=== PATIENT | male | born 1990 | race African-American/Black ===

== ENCOUNTER 2018-08-19 19:37 | Emergency (ER) | payer SELFPAY ==
[~2018-08-19] VITALS: Ht 180.3 cm; Wt 80.7 kg
[2018-08-19 20:39] LABS: BILIRUBIN,URINE NEGATIVE (NEG); CLARITY,URINE CLEAR; COLOR,URINE YELLOW; NITRITE,URINE NEGATIVE (NEG); PH,URINE 7.5; PROTEIN,URINE NEGATIVE (NEG-TRACE); UROBILINOGEN,URINE 0.2 mg/dL (0.2 mg/dL)
[2018-08-19 20:45] LABS: BARBITURATES NEG (NEG); BENZODIAZEPINES NEG (NEG); CANNABINOIDS NEG (NEG); COCAINE NEG (NEG); METHADONE NEG (NEG); OPIATES NEG (NEG); PHENCYCLIDINE NEG (NEG)
[2018-08-19 20:47] LABS: BACTERIA,URINE 0 /HPF (0-FEW); RBC,URINE 0 /HPF (0-2); WBC,URINE OCC /HPF (0-4)
[2018-08-19 20:48] LABS: AMPHETAMINE/METHAMPHETAMINE NEG (NEG); SQUAMOUS EPITHELIAL CELL,UR OCC /LPF
--- NOTE | 2018-08-19 21:21 | PHYS DOC ---
Past Medical History Past Medical History: No Pertinent History, Asthma Past Surgical History: No Surgical History Alcohol Use: Occasionally Drug Use: Marijuana Adult General Chief Complaint Chief Complaint: ABDOMINAL PAIN HPI HPI Patient is a 27 year old M who presents with 1 week of BULGE TO THE RIGHT GROIN. He states the pain is located in his right MORE THAN left groin area. He states he has had some radiation of the pain towards his back and kidneys. He has had no vomiting, constipation, burning with urination, blood in his stool, upper abdominal pain, or fevers. He does state that he feels a fullness in his groin along with a sensation of pressure. HE ALSO NOTES LESIONS ON HIS PENIS AT THE ONSET OF THE BUMPS. Review of Systems Review of Systems Constitutional: Denies fever or chills [] Eyes: Denies change in visual acuity, redness, or eye pain [] HENT: Denies nasal congestion or sore throat [] Respiratory: Denies cough or shortness of breath [] Cardiovascular: No additional information not addressed in HPI [] GI: Reports abdominal pain, denies nausea, vomiting, bloody stools or diarrhea [] : Denies dysuria or hematuria [] Integument: Denies rash reports a genital skin lesion [] Neurologic: Denies headache, focal weakness or sensory changes [] Endocrine: Denies polyuria or polydipsia [] All other systems were reviewed and found to be within normal limits, except as documented in this note. Current Medications Current Medications Current Medications Medications (Trade) Dose Ordered Sig/Arleen Start Time Stop Time Status Last Admin Dose Admin Azithromycin (Zithromax) 1,000 mg 1X ONCE 08/19/18 21:30 08/19/18 21:31 DC 08/19/18 21:30 1,000 MG Penicillin G Benzathine (Bicillin L-A) 2,400,000 unit 1X ONCE 08/19/18 21:30 08/19/18 21:31 DC 08/19/18 21:30 2,400,000 UNIT Allergies Allergies Allergies Coded Allergies Type Severity Reaction Last Updated Verified No Known Drug Allergies 06/03/15 No Physical Exam Physical Exam Constitutional: Well developed, well nourished, no acute distress, non-toxic appearance. [] HENT: Normocephalic, atraumatic, bilateral external ears normal, oropharynx moist, no oral exudates, nose normal. [] Eyes: PERRLA, EOMI, conjunctiva normal, no discharge. [] Neck: Normal range of motion, no tenderness, supple, no stridor. [] Pulmonary: Normal respiratory effort no increased work of breathing no obvious chest wall trauma Abdomen: Bowel sounds normal, soft, TENDER lymphadenopathy in the right and left groin, no pulsatile masses. [] Skin: Warm, dry, no erythema, no rash, 1cm superficial lesion on the dorsal and ventral aspect of the penis, no vesicles noted. [] Back: No tenderness, no CVA tenderness. Extremities: No tenderness, no cyanosis, no clubbing, ROM intact, no edema. [] Neurologic: Alert and oriented X 3, normal motor function, normal sensory function, no focal deficits noted. [] Psychologic: Affect normal, judgement normal, mood normal. [] Current Patient Data Vital Signs Vital Signs Date Time Temp Pulse Resp B/P (MAP) Pulse Ox O2 Delivery O2 Flow Rate FiO2 08/19/18 21:30 76 14 140/76 (97) 99 Room Air 08/19/18 19:55 98.6 98.6 Lab Values Laboratory Tests Test 08/19/18 20:05 08/19/18 21:25 Urine Collection Type Unknown Urine Color Yellow Urine Clarity Clear Urine pH 7.5 Urine Specific [place] 1.025 Urine Protein Negative mg/dL (NEG-TRACE) Urine Glucose (UA) Negative mg/dL (NEG) Urine Ketones (Stick) Negative mg/dL (NEG) Urine Blood Negative (NEG) Urine Nitrite Negative (NEG) Urine Bilirubin Negative (NEG) Urine Urobilinogen Dipstick 0.2 mg/dL (0.2 mg/dL) Urine Leukocyte Esterase Negative (NEG) Urine RBC 0 /HPF (0-2) Urine WBC Occ /HPF (0-4) Urine Squamous Epithelial Cells Occ /LPF Urine Bacteria 0 /HPF (0-FEW) Urine Mucus Slight /LPF Urine Opiates Screen Neg (NEG) Urine Methadone Screen Neg (NEG) Urine Barbiturates Neg (NEG) Urine Phencyclidine Screen Neg (NEG) Urine Amphetamine/Methamphetamine Neg (NEG) Urine Benzodiazepines Screen Neg (NEG) Urine Cocaine Screen Neg (NEG) Urine Cannabinoids Screen Neg (NEG) Urine Ethyl Alcohol Neg (NEG) Treponema pallidum Antibody Nonreactive (Nonreactive) EKG EKG [] Radiology/Procedures Radiology/Procedures [] Course & Med Decision Making Course & Med Decision Making Pertinent Labs and Imaging studies reviewed. (See chart for details) 27-year-old male presenting with lymphadenopathy as well as lesion to the penis. The screening blood work looked normal however we did give penicillin the emergency room prior to the results of the treponema antibody Also we did give azithromycin for presumed STD-type treatment the lymphadenopathies likely related to the genital lesion which at this point could be primary syphilis although given the negative treponema it is of unclear etiology I did tell him of the importance of follow-up within 1 month should the lymphadenopathy not get better abdomen was benign urinalysis was negative blood pressure was elevated however he was being checked with a normal size cuff on a very muscular forearm he was advised for routine blood pressure follow-up in the next 1-2 months. Dragon Disclaimer Dragon Disclaimer This electronic medical record was generated, in whole or in part, using a voice recognition dictation system. Departure Departure Impression: Primary Impression: Lymphadenopathy Disposition: HOME, SELF-CARE Condition: STABLE Referrals: NO PCP (PCP) Scripts No Active Prescriptions or Reported Meds LINUS COREA MD August 19, 2018 21:21
[2018-08-19 21:30] VITALS: BP 140/76
[2018-08-19] MEDS ORDERED: PENICILLIN G BENZATHINE LA 2,400,000 UNIT/4 ML DISP.SYRIN. IM ONE (21:30)
[2018-08-19] MEDS ORDERED: AZITHROMYCIN 250 MG TABLET. PO ONE (21:30)
== END 2018-08-19 22:25 | disposition home or self-care (01) ==
LOC: ER 19:37
DX: R59.0 Localized enlarged lymph nodes (principal); R10.31 Right lower quadrant pain; R10.32 Left lower quadrant pain; J45.909 Unspecified asthma, uncomplicated
CPT/HCPCS: 36415; 80307; 81001; 86592; 87491; 87591; 96372; 99284; J0561; Q0144

== ENCOUNTER 2018-09-02 10:24 | Emergency (ER) | payer SELFPAY ==
[~2018-09-02] VITALS: Ht 180.3 cm; Wt 80.7 kg
[2018-09-02 10:33] VITALS: BP 125/63
--- NOTE | 2018-09-02 10:47 | PHYS DOC ---
Past Medical History Past Medical History: No Pertinent History, Asthma Past Surgical History: No Surgical History Alcohol Use: Occasionally Drug Use: Marijuana Adult General Chief Complaint Chief Complaint: LOWER EXT PAIN HPI HPI Patient is a 27 year old female with no significant medical history who presents to the ED today complaining of 5 out of 10 right medial and lateral knee pain described as sharp and intermittent that began 2 days ago while playi ng basketball. Patient states the pain is worse on touching or pressing on the medial and lateral aspect of the knee. He states he injured his knee years ago as a child. He states is never followed up with a specialist. Review of Systems Review of Systems Constitutional: Denies fever or chills [] Musculoskeletal: Reports right knee pain Neurologic: Denies headache, focal weakness or sensory changes [] All other systems were reviewed and found to be within normal limits, except as documented in this note. Allergies Allergies Allergies Coded Allergies Type Severity Reaction Last Updated Verified No Known Drug Allergies 06/03/15 No Physical Exam Physical Exam Constitutional: Well developed, well nourished, no acute distress, non-toxic appearance. [] Skin: Warm, dry, no erythema, no rash. [] Back: No tenderness, no CVA tenderness. [] Extremities: Right knee with no obvious deformity. Crepitus noted during physical exam, full range of motion to the right knee, negative Ronak sign and negative Frank's sign negative anterior-posterior drawer sign, no crepitus. +2 right pedal pulses. Neurologic: Alert and oriented X 3, normal motor function, normal sensory function, no focal deficits noted. [] Psychologic: Affect normal, judgement normal, mood normal. [] Current Patient Data Vital Signs Vital Signs Date Time Temp Pulse Resp B/P (MAP) Pulse Ox O2 Delivery O2 Flow Rate FiO2 09/02/18 10:33 98.0 67 16 125/63 (83) 98 Room Air 98.0 EKG EKG [] Radiology/Procedures Radiology/Procedures []PROCEDURE: KNEE RIGHT 4V 3 views right knee dated 09/02/2018. No comparison available. Clinical data indication: Right knee pain. FINDINGS: 3 views of the right knee show normal bony alignment. No displaced fracture. Mild tricompartmental hypertrophic changes with deformity of the lateral tibial plateau and lateral femoral condyle, possibly related to old healed fracture. No joint effusion or loose body. No periostitis or bone destruction. IMPRESSION: 1. No acute radiographic abnormality. 2. Deformity at the lateral compartment could be related to old healed fracture. Electronically signed by: Issa Lima MD (09/02/2018 11:08 AM) [facility] DICTATED and SIGNED BY: ISSA LIMA MD DATE: 09/02/18 1108 Course & Med Decision Making Course & Med Decision Making Pertinent Labs and Imaging studies reviewed. (See chart for details) This is a 27-year-old male patient presented to the ED today with right knee pain, no known injury. The pain began 2 days while playing basketball. He has hi story of previous injury to the right knee. Right knee x-rays interpreted by radiologist are negative for any acute findings. Patient was placed in a knee immobilizer. Instructed to ice and elevate the extremity. Follow-up with orthopedic doctor in 1-2 weeks. Dragon Disclaimer Dragon Disclaimer This electronic medical record was generated, in whole or in part, using a voice recognition dictation system. Departure Departure Impression: Primary Impression: Right knee sprain Disposition: 01 HOME, SELF-CARE Condition: STABLE Referrals: NO PCP (PCP) MIKE DELATORRE MD Follow-up in 1-2 weeks Patient Instructions: Knee Sprain, [id number] Additional Instructions: You were evaluated medicine for right knee pain, your right knee x-rays are negative for any acute findings, we provided you an orthopedic doctor to follow- up as an outpatient. Continue to ice and elevate the extremity. Use the immobilizer provided as tolerated. Take the prescribed medications as needed for pain. Scripts Diclofenac Sodium (DICLOFENAC SODIUM) 50 Mg Tablet.dr 1 TAB PO BID, #60 TAB 1 Refill Prov: SHON WILSON SEBASTIAN 09/02/18 Problem Qualifiers Primary Impression: Right knee sprain Encounter type: initial encounter Involved ligament of knee: unspecified ligament Qualified Codes: S83.91XA - Sprain of unspecified site of right knee, initial encounter JENIFABIANASHON CORTES September 02, 2018 10:47
--- NOTE | 2018-09-02 11:11 | RAD ---
3 views right knee dated 09/02/2018. No comparison available. Clinical data indication: Right knee pain. FINDINGS: 3 views of the right knee show normal bony alignment. No displaced fracture. Mild tricompartmental hypertrophic changes with deformity of the lateral tibial plateau and lateral femoral condyle, possibly related to old healed fracture. No joint effusion or loose body. No periostitis or bone destruction. IMPRESSION: 1. No acute radiographic abnormality. 2. Deformity at the lateral compartment could be related to old healed fracture. Electronically signed by: Issa Lima MD (09/02/2018 11:08 AM) [facility]
[2018-09-02] MEDS ORDERED: DICL50TA4 PO (11:28)
== END 2018-09-02 11:48 | disposition home or self-care (01) ==
LOC: ER 10:24
DX: S83.8X1A Sprain of other specified parts of right knee, initial encounter (principal); J45.909 Unspecified asthma, uncomplicated; X58.XXXA Exposure to other specified factors, initial encounter; Y93.67 Activity, basketball; Y92.89 Other specified places as the place of occurrence of the external cause; Y99.8 Other external cause status
CPT/HCPCS: 29505; 73564; 99284

== ENCOUNTER 2019-04-10 14:49 | Emergency (ER) | payer SELFPAY ==
[~2019-04-10] VITALS: Ht 180.3 cm; Wt 81.6 kg
[~2019-04-10 14:49] MED LIST: DICL50TA4 PO
[2019-04-10 15:13] VITALS: BP 143/84
--- NOTE | 2019-04-10 15:38 | PHYS DOC ---
Past Medical History Past Medical History: No Pertinent History, Asthma Past Surgical History: No Surgical History Alcohol Use: Occasionally Drug Use: Marijuana Adult General Chief Complaint Chief Complaint: GENERALIZED BODY ACHES HPI HPI Patient is a 28 year old male who presents with body aches, feeling hot and cold, sore throat, congestion, runny nose, off has been ongoing for 2 weeks. Patient states he got better then also got worse again. Denies pain at this time. Review of Systems Review of Systems Constitutional: Reports fever or chills [] Eyes: Denies change in visual acuity, redness, or eye pain [] HENT: Reports nasal congestion and sore throat [] Respiratory: Reports cough denies shortness of breath [] Cardiovascular: No additional information not addressed in HPI [] GI: Reports nausea. Denies abdominal pain, vomiting, bloody stools or diarrhea [] : Denies dysuria or hematuria [] Musculoskeletal: Denies back pain or joint pain [] Integument: Denies rash or skin lesions [] Neurologic: Reports headache,denies focal weakness or sensory changes [] Endocrine: Denies polyuria or polydipsia [] Complete systems were reviewed and found to be within normal limits, except as documented in this note. Allergies Allergies Allergies Coded Allergies Type Severity Reaction Last Updated Verified No Known Drug Allergies 06/03/15 No Physical Exam Physical Exam Constitutional: Well developed, well nourished, no acute distress, non-toxic appearance. [] HENT: Normocephalic, atraumatic, bilateral external ears normal, bilateral tympanic membranes are pearly [place], oropharynx moist, no oral exudates, nose turbinates inflamed. Eyes: PERRLA, EOMI, conjunctiva normal, no discharge. [] Neck: Normal range of motion, no tenderness, supple, no stridor. [] Cardiovascular:Heart rate regular rhythm, no murmur [] Lungs & Thorax: Bilateral breath sounds clear to auscultation [] Abdomen: Bowel sounds normal, soft, no tenderness, no masses, no pulsatile masses. [] Skin: Warm, dry, no erythema, no rash. [] Neurologic: Alert and oriented X 3, normal motor function, normal sensory function, no focal deficits noted. [] Psychologic: Affect normal, judgement normal, mood normal. [] EKG EKG [] Radiology/Procedures Radiology/Procedures [] Course & Med Decision Making Course & Med Decision Making Pertinent Labs and Imaging studies reviewed. (See chart for details) The patient appears to have a viral illness. From the patient story it is possible the patient caught a virus improved and then caught a second virus. Discussed with patient the importance of staying hydrated, rest, also discussed symptomatic such as antipyretics and Zyrtec. A medical screening exam was performed on this patient and the patient does not appear to be having a medical emergency. His symptoms are not of sufficient severity and within reasonable medical probability it is unlikely the absence of immediate medical attention would result in placing the health of the individual in serious jeopardy, serious impairment to bodily functions, or serious dysfunction of any bodily organ or part. Dragon Disclaimer Dragon Disclaimer This electronic medical record was generated, in whole or in part, using a voice recognition dictation system. Departure Departure Impression: Primary Impression: Viral syndrome Additional Impression: Encounter for medical screening examination Disposition: HOME, SELF-CARE Condition: STABLE Referrals: NO PCP (PCP) Patient Instructions: Medical Screening Exam, Viral Syndrome Additional Instructions: Thank you for visiting [facility]. We appreciate you trusting us with your care. If any additional problems come up don't hesitate to return to visit us. Please follow up with your primary care provider so they can plan additional care if needed and know about the problem that you had. If symptoms worsen come back to the Emergency Department. Any concerning symptoms that start such as chest pain, shortness of air, weakness or numbness on one side of the body, running high fevers or any other concerning symptoms return to the ER. Problem Qualifiers DENICE RODRIGUEZ APRN Apr 10, 2019 15:38
== END 2019-04-10 16:08 | disposition home or self-care (01) ==
LOC: ER 14:49
DX: B34.9 Viral infection, unspecified (principal); R09.89 Other specified symptoms and signs involving the circulatory and respiratory systems; R09.81 Nasal congestion; R52 Pain, unspecified; J45.909 Unspecified asthma, uncomplicated; F12.90 Cannabis use, unspecified, uncomplicated
CPT/HCPCS: 99281

== ENCOUNTER 2020-08-01 01:08 | Emergency (ER) | payer SELFPAY ==
[~2020-08-01] VITALS: Ht 180.3 cm; Wt 86.4 kg
[2020-08-01 01:39] LABS: BASO # 0.1 x10^3/uL (0.0-0.2); BASO % 1 % (0-3); EOS # 0.1 x10^3/uL (0.0-0.7); EOS % 1 % (0-3); HEMATOCRIT 43.5 % (39.0-53.0); HEMOGLOBIN 14.8 g/dL (13.0-17.5); LYMPH % 43 % (24-48); MEAN CORPUSCULAR HEMOGLOBIN 31 pg (25-35); MEAN CORPUSCULAR HGB CONC 34 g/dL (31-37); MEAN CORPUSCULAR VOLUME 90 fL (79-100); MONO # 0.9 x10^3/uL (0.0-1.1); MONO % 10 % (0-9); NEUT # 4.1 x10^3/uL (1.8-7.7); NEUT % 44 % (31-73); PLATELET COUNT 294 x10^3/uL (140-400); RED BLOOD COUNT 4.84 x10^6/uL (4.30-5.70); RED CELL DISTRIBUTION WIDTH 12.9 % (11.5-14.5); WHITE BLOOD COUNT 9.2 x10^3/uL (4.0-11.0)
[2020-08-01] MEDS: IV NORMAL SALINE 1000ML BAG 1,000 ML IV SCH (01:39)
[2020-08-01 01:52] LABS: CREATININE 1.3 mg/dL (0.7-1.3); GFR 79.5; POTASSIUM 3.4 mmol/L (3.5-5.1)
--- NOTE | 2020-08-01 01:55 | EKG ---
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
[2020-08-01 01:57] LABS: ALBUMIN 4.5 g/dL (3.4-5.0); ALBUMIN/GLOBULIN RATIO 1.2 (1.0-1.7); MAGNESIUM 2.2 mg/dL (1.8-2.4); TOTAL BILIRUBIN 0.6 mg/dL (0.2-1.0); TOTAL PROTEIN 8.4 g/dL (6.4-8.2)
[2020-08-01] MEDS: HALOPERIDOL LACTATE 5 MG/ML VIAL. IVP ONE (02:00)
[2020-08-01 02:25] LABS: BILIRUBIN,URINE NEGATIVE (NEG); CLARITY,URINE CLEAR; COLOR,URINE YELLOW; NITRITE,URINE NEGATIVE (NEG); PH,URINE 6.5 (<5.0-8.0); PROTEIN,URINE NEGATIVE (NEG-TRACE); UROBILINOGEN,URINE 0.2 mg/dL (0.2 mg/dL)
--- NOTE | 2020-08-01 02:39 | RAD ---
CT Head W/O Contrast: History: Reason: head injury / Spl. Instructions: / History: Comparison: none Axial images were obtained without contrast. The lebron and white matter appears normal and symmetrical for the patients age. There is no mass effe ct, extraaxial fluid collections or hydrocephalus. There is no gross bleed. There is no focal loss of lebron-white matter distinction to suggest acute ischemia, i.e. stroke. Impression: No acute findings. RS Compliance Statement: One or more of the following individualized dose reduction techniques were utilized for this examinat ion: 1. Automated exposure control 2. Adjustment of the mA and/or kV according to patient size 3. Use of iterative reconstruction technique Electronically signed by: Horacio Bowles III, MD (08/01/2020 2:37 AM) [facility]
[2020-08-01 02:41] LABS: BACTERIA,URINE 0 /HPF (0-FEW); RBC,URINE OCC /HPF (0-2)
[2020-08-01 04:16] VITALS: BP 129/76
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
== END 2020-08-01 04:33 | disposition home or self-care (01) ==
LOC: ER 01:08
DX: S06.891A Other specified intracranial injury with loss of consciousness of 30 minutes or less, initial encounter (principal); R42 Dizziness and giddiness; R20.8 Other disturbances of skin sensation; R55 Syncope and collapse; J45.909 Unspecified asthma, uncomplicated; F12.90 Cannabis use, unspecified, uncomplicated; Z87.891 Personal history of nicotine dependence; Y08.89XA Assault by other specified means, initial encounter; Y93.89 Activity, other specified; Y92.89 Other specified places as the place of occurrence of the external cause; Y99.8 Other external cause status
CPT/HCPCS: 36415; 70450; 80053; 81001; 83690; 83735; 85025; 93005; 96360; 99285; J7030

== ENCOUNTER 2020-09-27 13:26 | Inpatient (IN) | payer SELFPAY ==
[~2020-09-27] VITALS: Ht 180.3 cm; Wt 95.3 kg
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
[2020-09-27 14:41] LABS: BASO % 0 % (0-3); EOS % 0 % (0-3); HEMATOCRIT 43.7 % (39.0-53.0); HEMOGLOBIN 15.5 g/dL (13.0-17.5); LYMPH # 1.8 x10^3/uL (1.0-4.8); LYMPH % 25 % (24-48); MEAN CORPUSCULAR HEMOGLOBIN 31 pg (25-35); MEAN CORPUSCULAR HGB CONC 36 g/dL (31-37); MEAN CORPUSCULAR VOLUME 88 fL (79-100); MONO # 0.6 x10^3/uL (0.0-1.1); MONO % 8 % (0-9); NEUT # 4.7 x10^3/uL (1.8-7.7); NEUT % 66 % (31-73); PLATELET COUNT 270 x10^3/uL (140-400); RED CELL DISTRIBUTION WIDTH 12.7 % (11.5-14.5); WHITE BLOOD COUNT 7.1 x10^3/uL (4.0-11.0)
[2020-09-27 14:43] LABS: BILIRUBIN,URINE NEGATIVE (NEG); CLARITY,URINE CLOUDY; COLOR,URINE AMBER; NITRITE,URINE NEGATIVE (NEG); PROTEIN,URINE 30 mg/dL (NEG-TRACE)
[2020-09-27 14:49] LABS: CALCIUM 9.7 mg/dL (8.5-10.1); CREATININE 1.4 mg/dL (0.7-1.3); POTASSIUM 3.8 mmol/L (3.5-5.1)
[2020-09-27 14:49] LABS: BARBITURATES NEG (NEG); BENZODIAZEPINES NEG (NEG); CANNABINOIDS POS (NEG); COCAINE NEG (NEG); METHADONE NEG (NEG); OPIATES NEG (NEG); PHENCYCLIDINE NEG (NEG)
[2020-09-27 14:50] LABS: AMPHETAMINE/METHAMPHETAMINE NEG (NEG)
[2020-09-27 14:55] LABS: ALBUMIN 4.7 g/dL (3.4-5.0); ALBUMIN/GLOBULIN RATIO 1.3 (1.0-1.7); TOTAL BILIRUBIN 1.9 mg/dL (0.2-1.0); TOTAL PROTEIN 8.4 g/dL (6.4-8.2)
[2020-09-27 14:57] LABS: BACTERIA,URINE FEW /HPF (0-FEW); RBC,URINE 0 /HPF (0-2); WBC,URINE OCC /HPF (0-4)
[2020-09-27] MEDS ORDERED: IV NORMAL SALINE 1000ML BAG 1,000 ML IV ONE ×2 (15:00→16:30)
[2020-09-27] MEDS ORDERED: fentaNYL PF VIAL 100 MCG/2 ML VIAL IVP ONE (15:00)
[2020-09-27] MEDS ORDERED: ONDANSETRON PF 4 MG/2 ML VIAL. IVP ONE ×2 (15:00→18:15)
[2020-09-27] MEDS ORDERED: ONDA4TAB12 PO (16:58)
[2020-09-27] MEDS ORDERED: HALOPERIDOL LACTATE 5 MG/ML VIAL. ONE (18:13)
[2020-09-27] MEDS ORDERED: HALOPERIDOL LACTATE 5 MG/ML VIAL. IVP ONE (18:15)
[2020-09-27] MEDS ORDERED: ONDANSETRON PF 4 MG/2 ML VIAL. IV PRN (18:30)
[2020-09-27] MEDS ORDERED: ACETAMINOPHEN 325 MG TABLET. PO PRN (18:30)
[2020-09-27] MEDS ORDERED: IV NORMAL SALINE 1000ML BAG 1,000 ML IV SCH (18:30)
[2020-09-27] MEDS ORDERED: fentaNYL PF VIAL 100 MCG/2 ML VIAL IV PRN (18:30)
[2020-09-27 19:48] VITALS: BP 115/50
--- NOTE | 2020-09-27 20:00 | NUR ---
Patient, Mando Fonseca, 29 y/o male, found in room, in bed, was not informed that the patient was on the unit. The patient is informed of plan of care, belongings documented, hx and assessment completed. He denies pain, he does want some soda and jello at this time. Patient information handbook given, denies any further questions. monitoring.
[2020-09-27] MEDS ORDERED: ZOLPIDEM 5 MG TABLET. PO PRN (22:45)
[2020-09-27 23:00] VITALS: BP 92/53
[2020-09-27] MEDS ORDERED: PROCHLORPERAZINE 10 MG/2 ML VIAL. IVP PRN (23:15)
[2020-09-27] MEDS ORDERED: MAG HYDROX/ALUMINUM HYD/SIMETH 30 ML ORAL.SUSP PO PRN (23:15)
[2020-09-27] MEDS ORDERED: BISACODYL 10 MG SUPP.RECT. PR PRN (23:15)
[2020-09-27] MEDS ORDERED: CALCIUM CARBONATE 500 MG TAB.CHEW PO PRN (23:15)
[2020-09-27] MEDS ORDERED: ONDANSETRON PF 4 MG/2 ML VIAL. IVP PRN (23:15)
[2020-09-28 04:50] VITALS: BP 114/61
--- NOTE | 2020-09-28 05:05 | NUR ---
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
[2020-09-28 07:00] VITALS: BP 138/72
[2020-09-28] MEDS ORDERED: PANTOPRAZOLE IV PUSH 40 MG VIAL. IVP SCH (07:30)
--- NOTE | 2020-09-28 07:40 | NUR ---
The patient is, again, informed of needing to obtain the covid, and flu swab, he asked if he could refuse it, "I don't feel like I have any infection or anything like that.." he was asked if he has been around anyone that is known to have the flu or Covid, patient denies, and again states he doesn't want to be swabbed, asks for lemon [place] drink
--- NOTE | 2020-09-28 08:51 | PDOC1 ---
History and Physical Date of Admission Date of Admission DATE: 09/28/20 TIME: 08:50 History of Present Illness History of Present Illness Mr. Rex Fonseca is a 29 year old male presenting with nausea, vomiting, diarrhea, and epigastric pain x4 days. Denies any fevers or cough. Patient states he had similar episodes in the past and had to be admitted for kidney injury. No sick contacts. P he was given IV fluid and supportive care and felt much better in the AM and wanted to DC home Past Medical History Cardiovascular: No pertinent hx Pulmonary: No pertinent hx GI: No pertinent hx Heme/Onc: No pertinent hx Hepatobiliary: No pertinent hx Psych: No pertinent hx Rheumatologic: No pertinent hx Infectious disease: No pertinent hx Renal/: No pertinent hx Endocrine: No pertinent hx Social History ALCOHOL: occassional Drugs: Marijuana Current Problem List Problem List Problems Medical Problems: (1) Nausea, vomiting, and diarrhea Status: Acute Current Medications Current Medications Current Medications Sodium Chloride 1,000 ml @ 1,000 mls/hr 1X ONCE IV Last administered on 09/27/20at 15:18; Start 09/27/20 at 15:00; Stop 09/27/20 at 15:59; Status DC Ondansetron HCl (Zofran) 4 mg 1X ONCE IVP Last administered on 09/27/20at 15:18; Start 09/27/20 at 15:00; Stop 09/27/20 at 15:01; Status DC Fentanyl Citrate (Fentanyl 2ml Vial) 75 mcg 1X ONCE IVP Last administered on 09/27/20at 15:19; Start 09/27/20 at 15:00; Stop 09/27/20 at 15:01; Status DC Sodium Chloride 1,000 ml @ 1,000 mls/hr 1X ONCE IV Last administered on 09/27/20at 16:30; Start 09/27/20 at 16:30; Stop 09/27/20 at 17:29; Status DC Ondansetron HCl (Zofran) 4 mg 1X ONCE IVP Last administered on 09/27/20at 18:17; Start 09/27/20 at 18:15; Stop 09/27/20 at 18:16; Status DC Haloperidol Lactate (Haldol Inj) 5 mg STK-MED ONCE .ROUTE ; Start 09/27/20 at 18:13; Stop 09/27/20 at 18:13; Status DC Haloperidol Lactate (Haldol Inj) 5 mg 1X ONCE IVP Last administered on 09/27/20at 18:20; Start 09/27/20 at 18:15; Stop 09/27/20 at 18:17; Status DC Ondansetron HCl (Zofran) 4 mg PRN Q8HRS PRN IV NAUSEA/VOMITING; Start 09/27/20 at 18:30; Stop 09/28/20 at 18:29 Fentanyl Citrate (Fentanyl 2ml Vial) 50 mcg PRN Q1HR PRN IV PAIN; Start 09/27/20 at 18:30; Stop 09/28/20 at 18:29 Sodium Chloride 1,000 ml @ 100 mls/hr Q10H IV ; Start 09/27/20 at 18:30; Stop 09/28/20 at 18:29 Acetaminophen (Tylenol) 650 mg PRN Q4HRS PRN PO FEVER > 100.3'F; Start 09/27/20 at 18:30; Stop 09/28/20 at 18:29 Zolpidem Tartrate (Ambien) 5 mg PRN QHS PRN PO INSOMNIA Last administered on 09/27/20at 22:43; Start 09/27/20 at 22:45 Ondansetron HCl (Zofran) 4 mg PRN Q6HRS PRN IVP NAUSEA/VOMITING; Start 09/27/20 at 23:15 Prochlorperazine Edisylate (Compazine) 10 mg PRN Q6HRS PRN IVP NAUSEA/VOMITING; Start 09/27/20 at 23:15 Al Hydroxide/Mg Hydroxide (Mylanta Plus Xs) 30 ml PRN Q3HRS PRN PO HEARTBURN / GAS; Start 09/27/20 at 23:15 Calcium Carbonate/ Glycine (Tums) 500 mg PRN Q3HRS PRN PO UPSET STOMACH; Start 09/27/20 at 23:15 Bisacodyl (Dulcolax Supp) 10 mg PRN DAILY PRN MO CONSTIPATION; Start 09/27/20 at 23:15 Pantoprazole Sodium (PROTONIX VIAL for IV PUSH) 40 mg DAILYAC IVP ; Start 09/28/20 at 07:30 Active Scripts Active Ondansetron Odt (Ondansetron) 4 Mg Tab.rapdis 1 Tab PO PRN Q6-8HRS PRN Diclofenac Sodium 50 Mg Tablet. 1 Tab PO BID Allergies Allergies: Coded Allergies: No Known Drug Allergies (Unverified , 06/03/15) Vitals Vitals Vital Signs Date Time Temp Pulse Resp B/P (MAP) Pulse Ox O2 Delivery O2 Flow Rate FiO2 09/28/20 07:00 98.0 63 20 138/72 (94) 95 Room Air 98.0 Labs Labs Laboratory Tests Test 09/27/20 13:52 09/27/20 14:10 09/27/20 15:31 09/28/20 02:00 Urine Collection Type Unknown Urine Color Sandra Urine Clarity Cloudy Urine pH 8.0 (<5.0-8.0) Urine Specific [place] >=1.030 (1.000-1.030) Urine Protein 30 mg/dL (NEG-TRACE) Urine Glucose (UA) Negative mg/dL (NEG) Urine Ketones (Stick) Trace mg/dL (NEG) Urine Blood Negative (NEG) Urine Nitrite Negative (NEG) Urine Bilirubin Negative (NEG) Urine Urobilinogen Dipstick 1.0 mg/dL (0.2 mg/dL) Urine Leukocyte Esterase Negative (NEG) Urine RBC 0 /HPF (0-2) Urine WBC Occ /HPF (0-4) Urine Squamous Epithelial Cells Mod /LPF Urine Bacteria Few /HPF (0-FEW) Urine Mucus Mod /LPF Urine Opiates Screen Neg (NEG) Urine Methadone Screen Neg (NEG) Urine Barbiturates Neg (NEG) Urine Phencyclidine Screen Neg (NEG) Urine Amphetamine/Methamphetamine Neg (NEG) Urine Benzodiazepines Screen Neg (NEG) Urine Cocaine Screen Neg (NEG) Urine Cannabinoids Screen Pos (NEG) Urine Ethyl Alcohol Neg (NEG) White Blood Count 7.1 x10^3/uL (4.0-11.0) Red Blood Count 5.00 x10^6/uL (4.30-5.70) Hemoglobin 15.5 g/dL (13.0-17.5) Hematocrit 43.7 % (39.0-53.0) Mean Corpuscular Volume 88 fL (79-100) Mean Corpuscular Hemoglobin 31 pg (25-35) Mean Corpuscular Hemoglobin Concent 36 g/dL (31-37) Red Cell Distribution Width 12.7 % (11.5-14.5) Platelet Count 270 x10^3/uL (140-400) Neutrophils (%) (Auto) 66 % (31-73) Lymphocytes (%) (Auto) 25 % (24-48) Monocytes (%) (Auto) 8 % (0-9) Eosinophils (%) (Auto) 0 % (0-3) Basophils (%) (Auto) 0 % (0-3) Neutrophils # (Auto) 4.7 x10^3/uL (1.8-7.7) Lymphocytes # (Auto) 1.8 x10^3/uL (1.0-4.8) Monocytes # (Auto) 0.6 x10^3/uL (0.0-1.1) Eosinophils # (Auto) 0.0 x10^3/uL (0.0-0.7) Basophils # (Auto) 0.0 x10^3/uL (0.0-0.2) Sodium Level 138 mmol/L (136-145) Potassium Level 3.8 mmol/L (3.5-5.1) Chloride Level 102 mmol/L (98-107) Carbon Dioxide Level 26 mmol/L (21-32) Anion Gap 10 (6-14) Blood Urea Nitrogen 11 mg/dL (8-26) Creatinine 1.4 mg/dL (0.7-1.3) Estimated GFR (Cockcroft-Gault) 73.0 BUN/Creatinine Ratio 8 (6-20) Glucose Level 107 mg/dL (70-99) Calcium Level 9.7 mg/dL (8.5-10.1) Total Bilirubin 1.9 mg/dL (0.2-1.0) Aspartate Amino Transf (AST/SGOT) 59 U/L (15-37) Alanine Aminotransferase (ALT/SGPT) 136 U/L (16-63) Alkaline Phosphatase 90 U/L (46-116) Total Protein 8.4 g/dL (6.4-8.2) Albumin 4.7 g/dL (3.4-5.0) Albumin/Globulin Ratio 1.3 (1.0-1.7) Lipase 25 U/L (73-393) Lactic Acid Level 2.2 mmol/L (0.4-2.0) 1.0 mmol/L (0.4-2.0) Laboratory Tests Test 09/27/20 13:52 09/27/20 14:10 09/27/20 15:31 09/28/20 02:00 Urine Collection Type Unknown Urine Color Sandra Urine Clarity Cloudy Urine pH 8.0 (<5.0-8.0) Urine Specific [place] >=1.030 (1.000-1.030) Urine Protein 30 mg/dL (NEG-TRACE) Urine Glucose (UA) Negative mg/dL (NEG) Urine Ketones (Stick) Trace mg/dL (NEG) Urine Blood Negative (NEG) Urine Nitrite Negative (NEG) Urine Bilirubin Negative (NEG) Urine Urobilinogen Dipstick 1.0 mg/dL (0.2 mg/dL) Urine Leukocyte Esterase Negative (NEG) Urine RBC 0 /HPF (0-2) Urine WBC Occ /HPF (0-4) Urine Squamous Epithelial Cells Mod /LPF Urine Bacteria Few /HPF (0-FEW) Urine Mucus Mod /LPF Urine Opiates Screen Neg (NEG) Urine Methadone Screen Neg (NEG) Urine Barbiturates Neg (NEG) Urine Phencyclidine Screen Neg (NEG) Urine Amphetamine/Methamphetamine Neg (NEG) Urine Benzodiazepines Screen Neg (NEG) Urine Cocaine Screen Neg (NEG) Urine Cannabinoids Screen Pos (NEG) Urine Ethyl Alcohol Neg (NEG) White Blood Count 7.1 x10^3/uL (4.0-11.0) Red Blood Count 5.00 x10^6/uL (4.30-5.70) Hemoglobin 15.5 g/dL (13.0-17.5) Hematocrit 43.7 % (39.0-53.0) Mean Corpuscular Volume 88 fL (79-100) Mean Corpuscular Hemoglobin 31 pg (25-35) Mean Corpuscular Hemoglobin Concent 36 g/dL (31-37) Red Cell Distribution Width 12.7 % (11.5-14.5) Platelet Count 270 x10^3/uL (140-400) Neutrophils (%) (Auto) 66 % (31-73) Lymphocytes (%) (Auto) 25 % (24-48) Monocytes (%) (Auto) 8 % (0-9) Eosinophils (%) (Auto) 0 % (0-3) Basophils (%) (Auto) 0 % (0-3) Neutrophils # (Auto) 4.7 x10^3/uL (1.8-7.7) Lymphocytes # (Auto) 1.8 x10^3/uL (1.0-4.8) Monocytes # (Auto) 0.6 x10^3/uL (0.0-1.1) Eosinophils # (Auto) 0.0 x10^3/uL (0.0-0.7) Basophils # (Auto) 0.0 x10^3/uL (0.0-0.2) Sodium Level 138 mmol/L (136-145) Potassium Level 3.8 mmol/L (3.5-5.1) Chloride Level 102 mmol/L (98-107) Carbon Dioxide Level 26 mmol/L (21-32) Anion Gap 10 (6-14) Blood Urea Nitrogen 11 mg/dL (8-26) Creatinine 1.4 mg/dL (0.7-1.3) Estimated GFR (Cockcroft-Gault) 73.0 BUN/Creatinine Ratio 8 (6-20) Glucose Level 107 mg/dL (70-99) Calcium Level 9.7 mg/dL (8.5-10.1) Total Bilirubin 1.9 mg/dL (0.2-1.0) Aspartate Amino Transf (AST/SGOT) 59 U/L (15-37) Alanine Aminotransferase (ALT/SGPT) 136 U/L (16-63) Alkaline Phosphatase 90 U/L (46-116) Total Protein 8.4 g/dL (6.4-8.2) Albumin 4.7 g/dL (3.4-5.0) Albumin/Globulin Ratio 1.3 (1.0-1.7) Lipase 25 U/L (73-393) Lactic Acid Level 2.2 mmol/L (0.4-2.0) 1.0 mmol/L (0.4-2.0) VTE Prophylaxis Ordered VTE Prophylaxis Devices: No VTE Pharmacological Prophylaxi: Yes KOLBY YATES MD Sep 28, 2020 08:51
--- NOTE | 2020-09-28 10:02 | NUR ---
Discharge Note: STEVE GARBRE JOHANNE Discharge instructions and discharge home medications reviewed with Patient and a copy given. All questions have been answered and understanding verbalized. The following instructions and handouts were given: follow up instructions, medication education Discontinued lines and drains: 20 guage left AC, tip intact. patinet tolerated well. Patient discharged to home with self care via significant other.
--- NOTE | 2020-10-01 13:19 | PDOC3 ---
Discharge Summary Visit Information Date of Admission: Sep 27, 2020 Date of Discharge: Sep 28, 2020 Final Diagnosis nausea and vomiting acute viral enteritis THC use, not likely hyperemesis, first occurence, but discussed withpatient CKD 2 mild transaminitis Problems Medical Problems: (1) Nausea, vomiting, and diarrhea Status: Acute Brief Hospital Course Allergies Allergies Coded Allergies Type Severity Reaction Last Updated Verified No Known Drug Allergies 06/03/15 No Brief Hospital Course Mr. Mando Fonseca is a 29 year old male presenting with nausea, vomiting, diarrhea, and epigastric pain x4 days. Denies any fevers or cough. Patient states he had similar episodes in the past and had to be admitted for kidney injury. No sick contacts. P he was given IV fluid and supportive care and felt much better in the AM and wanted to DC home Discharge Information Condition at Discharge: Improved Follow Up: Weeks Disposition/Orders: D/C to Home Scheduled Diclofenac Sodium (Diclofenac Sodium) 50 Mg Tablet.dr, 1 TAB PO BID, #60 Ref 1 Prescribed by: Renae Ruffin APRN on 09/02/18 1128 Scheduled PRN Ondansetron (Ondansetron Odt) 4 Mg Tab.rapdis, 1 TAB PO PRN Q6-8HRS PRN for NAUSEA, #15 Prescribed by: VALENTINA OSULLIVAN MD on 09/27/201657 Last Action: New Order on 09/27/201657 by VALENTINA OSULLIVAN MD Patient Instructions Patient Instructions pt seen and DC same day, he felt improved to baseline Justicifation of Admission Dx: Justifications for Admission: Justification of Admission Dx: No (obs) KOLBY YATES MD Oct 01, 2020 13:19
== END 2020-09-28 10:02 | disposition home or self-care (01) | DRG 392 ==
LOC: ER 13:26 → 6 SOUTH 18:19
PROVIDERS: ADMIT Family Medicine; ATTEND Family Medicine
DX: A08.4 Viral intestinal infection, unspecified (principal); J45.909 Unspecified asthma, uncomplicated; Z87.891 Personal history of nicotine dependence; F12.90 Cannabis use, unspecified, uncomplicated; N18.2 Chronic kidney disease, stage 2 (mild); R74.01 Elevation of levels of liver transaminase levels
CPT/HCPCS: 36415; 80053; 80307; 81001; 83605; 83690; 85025; 96361; 96374; 96375; 96376; J1630; J2405; J3010; J7030; 99285-25; G0378

== ENCOUNTER 2020-10-31 09:56 | Emergency (ER) | payer SELFPAY ==
[~2020-10-31] VITALS: Ht 177.8 cm; Wt 84.0 kg
[~2020-10-31 09:56] MED LIST changes: +ONDA4TAB12 PO
[2020-10-31] MEDS ORDERED: IV NORMAL SALINE 1000ML BAG 1,000 ML IV ONE (10:45)
[2020-10-31] MEDS ORDERED: ONDANSETRON PF 4 MG/2 ML VIAL. IVP ONE (10:45)
[2020-10-31] MEDS ORDERED: HALOPERIDOL LACTATE 5 MG/ML VIAL. IVP ONE (10:45)
--- NOTE | 2020-10-31 10:48 | PHYS DOC ---
Past Medical History Past Medical History: Asthma, Cyclic Vomiting Additional Past Medical Histor: CHRONIC N/V/D,STEPHANIE,ACUTE RENAL FAILURE,RHABDOMYLOSIS Past Surgical History: No Surgical History Smoking Status: Never Smoker Alcohol Use: None Drug Use: Marijuana General Adult EDM: Chief Complaint: NAUSEA/VOMITING/DIARRHEA HPI: HPI: Patient is a 30 year old male with history of asthma, marijuana use with chronic nausea and vomiting who presents to the ED today complaining of chronic nausea and vomiting. Patient states symptoms have been going on for months. Patient states he used marijuana a couple days ago. Patient denies any fever, hematemesis or melena. States he has generalized abdominal pain. Patient is also complaining of loss of taste, and a cough for 1 week. Denies any chest pa in or shortness of breath. He also states he has history of acute kidney injury from dehydration after episodes of vomiting Review of Systems: Review of Systems: Constitutional: Denies fever or chills. [] Eyes: Denies change in visual acuity. [] HENT: Denies nasal congestion or sore throat. [] Respiratory: Reports cough and muscle test, denies shortness of breath. [] Cardiovascular: Denies chest pain or edema. [] GI: Reports chronic abdominal pain, nausea and vomiting, denies bloody stools or diarrhea. [] : Denies dysuria. [] Musculoskeletal: Denies back pain or joint pain. [] Integument: Denies rash. [] Neurologic: Denies headache, focal weakness or sensory changes. [] Psychiatric: Denies depression or anxiety. [] Heart Score: C/O Chest Pain: N/A Risk Factors: Risk Factors: DM, Current or recent (<one month) smoker, HTN, HLP, family history of CAD, obesity. Risk Scores: Score 0 - 3: 2.5% MACE over next 6 weeks - Discharge Home Score 4 - 6: 20.3% MACE over next 6 weeks - Admit for Clinical Observation Score 7 - 10: 72.7% MACE over next 6 weeks - Early Invasive Strategies Allergies: Allergies: Allergies Coded Allergies Type Severity Reaction Last Updated Verified No Known Drug Allergies 06/03/15 No Physical Exam: PE: Constitutional: Well developed, well nourished, no acute distress, non-toxic appearance. [] HENT: Normocephalic, atraumatic, bilateral external ears normal, oropharynx mois t, no oral exudates, nose normal. [] Eyes: PERRLA, EOMI, conjunctiva normal, no discharge. [] Neck: Normal range of motion, no tenderness, supple, no stridor. [] Cardiovascular:Heart rate regular rhythm, no murmur [] Lungs & Thorax: Bilateral breath sounds clear to auscultation [] Abdomen: Bowel sounds normal, soft, no tenderness, no masses, no pulsatile masses. [] Skin: Warm, dry, no erythema, no rash. [] Back: No tenderness, no CVA tenderness. [] Extremities: No tenderness, no cyanosis, no clubbing, ROM intact, no edema. [] Neurologic: Alert and oriented X 3, normal motor function, normal sensory function, no focal deficits noted. [] Psychologic: Affect normal, judgement normal, mood normal. [] Current Patient Data: Vital Signs: Vital Signs Date Time Temp Pulse Resp B/P (MAP) Pulse Ox O2 Delivery O2 Flow Rate FiO2 10/31/20 10:06 98.0 60 20 177/105 (94) 100 Room Air 98.0 EKG: EKG: [] Radiology/Procedures: Radiology/Procedures: []PROCEDURE: CHEST AP ONLY Exam Date: 10/31/2020 10:50 AM XR CHEST 1V Indication: Reason: cough / Spl. Instructions: / History: . Comparison: October 26, 2017 FINDINGS/ IMPRESSION: The cardiac silhouette and pulmonary vasculature are within normal limits. There is no focal consolidation, pleural effusion or pneumothorax. The visualized osseous structures are intact. Electronically signed by: Francisco Javier Moore MD (10/31/2020 11:00 AM) [id number] DICTATED and SIGNED BY: FRANCISCO JAVIER MOORE MD DATE: 10/31/20 [id number] 0 Course & Med Decision Making: Course & Med Decision Making Pertinent Labs and Imaging studies reviewed. (See chart for details) This is a 30-year-old male patient with a history of marijuana use with chronic nausea and vomiting presenting to the ED today complaining of chronic nausea, vomiting, and generalized abdominal pain. Patient is also complaining of loss of taste and a cough for 1 week. Patient used marijuana a couple days ago. He states he has been told this could be the source of his chronic nausea and vomiting. Chest x-ray with no acute findings, Pending Covid results CMP with no acute findings Given a liter of fluids Zofran and Haldol, feeling better. Discharge to home. Provided GI for follow-up. Discussed the effect of marijuana use and cyclic vomiting. Your evaluated in the emergency room for nausea and vomiting. Take the prescribed medications as needed. Please follow-up with the provided data examination clerk in 1 to 2 weeks. Dragon Disclaimer: Dragon Disclaimer: This electronic medical record was generated, in whole or in part, using a voice recognition dictation system. Departure Departure Impression: Primary Impression: Cyclical vomiting Additional Impression: Person under investigation for COVID-19 Disposition: HOME / SELF CARE / HOMELESS Condition: STABLE Referrals: NO PCP (PCP) LEON ALMEIDA MD follow up in one week Patient Instructions: Cyclic Vomiting Syndrome Additional Instructions: Your kidney function is normal today. We encourage you to push fluids. Follow- up with the provided data examination clerk in 1 to 2 weeks. You were tested for COVID-19, quarantine yourself until results are back. Scripts Promethazine Hcl (PROMETHAZINE HCL) 12.5 Mg Tablet 1 TAB PO Q6HRS for motion sickness, #30 TAB 0 Refills Prov: SHON WILSON APRN 10/31/20 SHON WILSON APRN Oct 31, 2020 10:47
[2020-10-31 11:02] LABS: ANION GAP 12 (6-14); BLOOD UREA NITROGEN 5 mg/dL (8-26); BUN/CREATININE RATIO 5 (6-20); CALCIUM 9.4 mg/dL (8.5-10.1); CARBON DIOXIDE 25 mmol/L (21-32); CHLORIDE 104 mmol/L (98-107); CREATININE 1.1 mg/dL (0.7-1.3); GFR 95.8; GLUCOSE 104 mg/dL (70-99); POTASSIUM 3.7 mmol/L (3.5-5.1); SODIUM 141 mmol/L (136-145)
--- NOTE | 2020-10-31 11:03 | RAD ---
Exam Date: 10/31/2020 10:50 AM XR CHEST 1V Indication: Reason: cough / Spl. Instructions: / History: . Comparison: October 26, 2017 FINDINGS/ IMPRESSION: The cardiac silhouette and pulmonary vasculature are within normal limits. There is no focal consolidation, pleural effusion or pneumothorax. The visualized osseous structures are intact. Electronically signed by: Ruperto Moore MD (10/31/2020 11:00 AM) [id number]
[2020-10-31 11:07] LABS: ALBUMIN 3.9 g/dL (3.4-5.0); ALBUMIN/GLOBULIN RATIO 1.1 (1.0-1.7); ALK PHOS 77 U/L (46-116); ALT (SGPT) 34 U/L (16-63); AST (SGOT) 25 U/L (15-37); LIPASE 40 U/L (73-393); TOTAL BILIRUBIN 0.9 mg/dL (0.2-1.0); TOTAL PROTEIN 7.4 g/dL (6.4-8.2)
[2020-10-31 11:20] LABS: C-REACTIVE PROTEIN < 0.5 mg/L (0-3.3)
[2020-10-31 12:41] VITALS: BP 124/58
[2020-10-31] MEDS ORDERED: PROM12.58 PO (13:23)
[2020-10-31 13:36] LABS: BASO % 1 % (0-3); EOS % 1 % (0-3); HEMATOCRIT 39.3 % (39.0-53.0); HEMOGLOBIN 13.5 g/dL (13.0-17.5); LYMPH # 1.6 x10^3/uL (1.0-4.8); LYMPH % 28 % (24-48); MEAN CORPUSCULAR HEMOGLOBIN 31 pg (25-35); MEAN CORPUSCULAR HGB CONC 34 g/dL (31-37); MEAN CORPUSCULAR VOLUME 90 fL (79-100); MONO # 0.5 x10^3/uL (0.0-1.1); MONO % 9 % (0-9); NEUT # 3.5 x10^3/uL (1.8-7.7); NEUT % 62 % (31-73); PLATELET COUNT 226 x10^3/uL (140-400); RED BLOOD COUNT 4.38 x10^6/uL (4.30-5.70); RED CELL DISTRIBUTION WIDTH 12.8 % (11.5-14.5); WHITE BLOOD COUNT 5.6 x10^3/uL (4.0-11.0)
[2020-10-31 13:57] LABS: BILIRUBIN,URINE NEGATIVE (NEG); CLARITY,URINE CLEAR; COLOR,URINE YELLOW; NITRITE,URINE NEGATIVE (NEG); PROTEIN,URINE NEGATIVE (NEG-TRACE); UROBILINOGEN,URINE 0.2 mg/dL (0.2 mg/dL)
[2020-10-31 14:04] LABS: BARBITURATES NEG (NEG); BENZODIAZEPINES NEG (NEG); CANNABINOIDS POS (NEG); COCAINE NEG (NEG); METHADONE NEG (NEG); OPIATES NEG (NEG); PHENCYCLIDINE NEG (NEG)
[2020-10-31 14:05] LABS: AMPHETAMINE/METHAMPHETAMINE NEG (NEG)
[2020-10-31 14:07] LABS: BACTERIA,URINE FEW /HPF (0-FEW); RBC,URINE 0 /HPF (0-2); WBC,URINE OCC /HPF (0-4)
== END 2020-10-31 13:34 | disposition home or self-care (01) ==
LOC: ER 09:56
DX: R11.15 Cyclical vomiting syndrome unrelated to migraine (principal); J45.909 Unspecified asthma, uncomplicated; Z20.822 Contact with and (suspected) exposure to COVID-19
CPT/HCPCS: 36415; 71045; 80053; 80307; 81001; 83690; 83735; 85025; 86140; 96361; 96374; 96375; 99285; G0480; J1630; J2405; J7030

== ENCOUNTER 2020-11-02 11:02 | Emergency (ER) | payer SELFPAY ==
[~2020-11-02] VITALS: Ht 180.3 cm; Wt 90.0 kg
[~2020-11-02 11:02] MED LIST changes: +PROM12.58 PO
[2020-11-02] MEDS ORDERED: IV NORMAL SALINE 1000ML BAG 1,000 ML IV ONE (11:30)
[2020-11-02] MEDS ORDERED: HALOPERIDOL LACTATE 5 MG/ML VIAL. IVP ONE (11:30)
[2020-11-02] MEDS ORDERED: FAMOTIDINE 20 MG/2 ML VIAL IVP ONE (11:30)
[2020-11-02 11:36] LABS: BASO % 1 % (0-3); EOS # 0.1 x10^3/uL (0.0-0.7); EOS % 1 % (0-3); HEMATOCRIT 40.1 % (39.0-53.0); HEMOGLOBIN 13.9 g/dL (13.0-17.5); LYMPH % 34 % (24-48); MEAN CORPUSCULAR HEMOGLOBIN 31 pg (25-35); MEAN CORPUSCULAR HGB CONC 35 g/dL (31-37); MEAN CORPUSCULAR VOLUME 89 fL (79-100); MONO # 0.5 x10^3/uL (0.0-1.1); MONO % 10 % (0-9); NEUT # 3.1 x10^3/uL (1.8-7.7); NEUT % 54 % (31-73); PLATELET COUNT 231 x10^3/uL (140-400); RED BLOOD COUNT 4.51 x10^6/uL (4.30-5.70); RED CELL DISTRIBUTION WIDTH 12.9 % (11.5-14.5); WHITE BLOOD COUNT 5.8 x10^3/uL (4.0-11.0)
[2020-11-02 11:49] LABS: CALCIUM 9.3 mg/dL (8.5-10.1); CREATININE 1.1 mg/dL (0.7-1.3); GFR 95.8; POTASSIUM 3.6 mmol/L (3.5-5.1)
[2020-11-02 11:55] LABS: ALBUMIN 3.9 g/dL (3.4-5.0); ALBUMIN/GLOBULIN RATIO 1.2 (1.0-1.7); TOTAL BILIRUBIN 1.2 mg/dL (0.2-1.0); TOTAL PROTEIN 7.2 g/dL (6.4-8.2)
[2020-11-02 12:26] VITALS: BP 130/77
--- NOTE | 2020-11-02 12:27 | PHYS DOC ---
Past Medical History Past Medical History: Asthma, Cyclic Vomiting Additional Past Medical Histor: CHRONIC N/V/D,STEPHANIE,ACUTE RENAL FAILURE,RHABDOM YLOSIS (SHON WILSON Reyes HANDBAG STITCHER) Past Surgical History: No Surgical History (SHON WILSON Reyes HANDBAG STITCHER) Smoking Status: Current Every Day Smoker Alcohol Use: None Drug Use: Marijuana (SHON WILSON Reyes HANDBAG STITCHER) General Adult EDM: Chief Complaint: NAUSEA/VOMITING/DIARRHEA HPI: HPI: Patient is a 30 year old male with a history of cyclic vomiting from marijuana use who presents the ED today complaining of chronic nausea and vomiting. Patient states he used marijuana couple days ago. Patient denies any chest pain or shortness of breath. Reports generalized mild intermittent abdominal pain and believes he is constipated. Denies anything specifically relieving his pain but states vomiting exacerbates his pain to the abdomen (SHON WILSON HANDBAG STITCHER) Review of Systems: Review of Systems: Constitutional: Denies fever or chills. [] Eyes: Denies change in visual acuity. [] HENT: Denies nasal congestion or sore throat. [] Respiratory: Denies cough or shortness of breath. [] Cardiovascular: Denies chest pain or edema. [] GI: Reports nausea, vomiting, abdominal pain, denies bloody stools or diarrhea. [] : Denies dysuria. [] Musculoskeletal: Denies back pain or joint pain. [] Integument: Denies rash. [] Neurologic: Denies headache, focal weakness or sensory changes. [] Psychiatric: Denies depression or anxiety. [] (SHON WILSON Reyes HANDBAG STITCHER) Heart Score: C/O Chest Pain: N/A Risk Factors: Risk Factors: DM, Current or recent (<one month) smoker, HTN, HLP, family history of CAD, obesity. Risk Scores: Score 0 - 3: 2.5% MACE over next 6 weeks - Discharge Home Score 4 - 6: 20.3% MACE over next 6 weeks - Admit for Clinical Observation Score 7 - 10: 72.7% MACE over next 6 weeks - Early Invasive Strategies (PARKERMelySHON Reyes HANDBAG STITCHER) Current Medications: Current Medications Medications (Trade) Dose Ordered Sig/Arleen Start Time Stop Time Status Last Admin Dose Admin Famotidine (Pepcid Vial) 20 mg 1X ONCE 7/17/21 11:30 11/02/20 11:31 DC 11/02/20 11:52 20 MG Haloperidol Lactate (Haldol Inj) 5 mg 1X ONCE 11/02/20 11:30 11/02/20 11:31 DC 11/02/20 11:52 5 MG Sodium Chloride 1,000 ml @ 1,000 mls/hr 1X ONCE 11/02/20 11:30 11/02/20 12:29 11/02/20 11:30 1,000 MLS/HR (KATIESHON M HANDBAG STITCHER) Allergies: Allergies: Allergies Coded Allergies Type Severity Reaction Last Updated Verified No Known Drug Allergies 06/03/15 No (JENISHON JUNG M HANDBAG STITCHER) Physical Exam: PE: Constitutional: Well developed, well nourished, no acute distress, non-toxic appearance. [] HENT: Normocephalic, atraumatic, bilateral external ears normal, oropharynx moist, no oral exudates, nose normal. [] Eyes: PERRLA, EOMI, conjunctiva normal, no discharge. [] Neck: Normal range of motion, no tenderness, supple, no stridor. [] Cardiovascular:Heart rate regular rhythm, no murmur [] Lungs & Thorax: Bilateral breath sounds clear to auscultation [] Abdomen: Bowel sounds normal, soft, no tenderness, no masses, no pulsatile masses. [] Skin: Warm, dry, no erythema, no rash. [] Back: No tenderness, no CVA tenderness. [] Extremities: No tenderness, no cyanosis, no clubbing, ROM intact, no edema. [] Neurologic: Alert and oriented X 3, normal motor function, normal sensory function, no focal deficits noted. [] Psychologic: Affect normal, judgement normal, mood normal. [] (SHON WILSON M HANDBAG STITCHER) Current Patient Data: Labs: Laboratory Tests Test 11/02/20 11:21 White Blood Count 5.8 x10^3/uL (4.0-11.0) Red Blood Count 4.51 x10^6/uL (4.30-5.70) Hemoglobin 13.9 g/dL (13.0-17.5) Hematocrit 40.1 % (39.0-53.0) Mean Corpuscular Volume 89 fL (79-100) Mean Corpuscular Hemoglobin 31 pg (25-35) Mean Corpuscular Hemoglobin Concent 35 g/dL (31-37) Red Cell Distribution Width 12.9 % (11.5-14.5) Platelet Count 231 x10^3/uL (140-400) Neutrophils (%) (Auto) 54 % (31-73) Lymphocytes (%) (Auto) 34 % (24-48) Monocytes (%) (Auto) 10 % (0-9) H Eosinophils (%) (Auto) 1 % (0-3) Basophils (%) (Auto) 1 % (0-3) Neutrophils # (Auto) 3.1 x10^3/uL (1.8-7.7) Lymphocytes # (Auto) 2.0 x10^3/uL (1.0-4.8) Monocytes # (Auto) 0.5 x10^3/uL (0.0-1.1) Eosinophils # (Auto) 0.1 x10^3/uL (0.0-0.7) Basophils # (Auto) 0.0 x10^3/uL (0.0-0.2) Sodium Level 140 mmol/L (136-145) Potassium Level 3.6 mmol/L (3.5-5.1) Chloride Level 101 mmol/L (98-107) Carbon Dioxide Level 29 mmol/L (21-32) Anion Gap 10 (6-14) Blood Urea Nitrogen 5 mg/dL (8-26) L Creatinine 1.1 mg/dL (0.7-1.3) Estimated GFR (Cockcroft-Gault) 95.8 BUN/Creatinine Ratio 5 (6-20) L Glucose Level 102 mg/dL (70-99) H Calcium Level 9.3 mg/dL (8.5-10.1) Total Bilirubin 1.2 mg/dL (0.2-1.0) H Aspartate Amino Transferase (AST) 24 U/L (15-37) Alanine Aminotransferase (ALT) 48 U/L (16-63) Alkaline Phosphatase 78 U/L (46-116) Total Protein 7.2 g/dL (6.4-8.2) Albumin 3.9 g/dL (3.4-5.0) Albumin/Globulin Ratio 1.2 (1.0-1.7) Lipase 32 U/L (73-393) L Ethyl Alcohol Level < 10 mg/dL (0-10) Laboratory Tests 11/02/20 11:21 Laboratory Tests 11/02/20 11:21 Vital Signs: Vital Signs Date Time Temp Pulse Resp B/P (MAP) Pulse Ox O2 Delivery O2 Flow Rate FiO2 11/02/20 11:10 97.7 67 18 175/84 (80) 96 Room Air 97.7 (SHON WILSON APRN) EKG: EKG: [] (SHON WILSON APRN) Radiology/Procedures: Radiology/Procedures: [] (SHON WILSON APRN) Course & Med Decision Making: Course & Med Decision Making Pertinent Labs and Imaging studies reviewed. (See chart for details) This is a 30-year-old male patient with history of cyclic vomiting from marijuana use presenting to the ED today complaining of nausea and vomiting that is chronic. Patient uses marijuana couple days ago. He was also seen in the ED a couple days ago for the same complaint. We had talked about not using marijuana. He continued to use this drug. CBC, CMP with no acute findings. UDS is still pending. Patient was given a liter of fluid, Zofran Haldol and Pepcid. Feeling better. Discharge to home. Again told her to stop using marijuana. discussed constipation prevention and management (SHON WILSON APRN) Dragon Disclaimer: Oneil Disclaimer: This electronic medical record was generated, in whole or in part, using a voice recognition dictation system. (SHON WILSON APRN) Departure Departure Impression: Primary Impression: Cyclical vomiting Additional Impression: Marijuana use Disposition: 01 HOME / SELF CARE / HOMELESS Condition: STABLE Referrals: NO PCP (PCP) Patient Instructions: Cyclic Vomiting Syndrome Additional Instructions: Your work-up in the emergency room was negative for any acute findings. We highly encourage you to stop using marijuana otherwise you will continue to have nausea and vomiting. You can take magnesium citrate for constipation and Miralax Scripts Prochlorperazine Maleate (Compazine) 10 Mg Tablet 1 TAB PO Q6HRS for 7 Days, #28 TAB 0 Refills Prov: SHON WILSON APRN 11/02/20 Attending Signature Attending Signature I have reviewed the PA/CREDIT ADMINISTRATION SPECIALIST's note and plan of care. I was available for consultation as needed during the patient's visit in the emergency department. I agree with the clinical impression, plan, and disposition. (DENICE ADAMS DO) SHON WILSON APRN Nov 02, 2020 12:27 DENICE ADAMS DO Nov 02, 2020 13:57
[2020-11-02] MEDS ORDERED: PROC10TA57 PO (12:30)
--- NOTE | 2020-11-02 12:32 | RAD ---
XR ABDOMEN COMP ACUTE History: Abdominal pain, constipation? Comparison: CT abdomen and pelvis 10/26/2017. Technique: PA chest, upright and supine abdomen radiographs Findings: Chest: clear lungs, normal cardiomediastinal silhouette. Bowel gas pattern: Normal. No excessive stool burden. Free air: None. Abnormal calcifications: None. Bones: Normal. Other: None. Impression: 1. Normal acute abdominal series. Electronically signed by: Omega Chowdhury MD (11/02/2020 12:29 PM) [id number]
== END 2020-11-02 12:40 | disposition home or self-care (01) ==
LOC: ER 11:02
DX: R11.15 Cyclical vomiting syndrome unrelated to migraine (principal); F12.90 Cannabis use, unspecified, uncomplicated; J45.909 Unspecified asthma, uncomplicated; F17.200 Nicotine dependence, unspecified, uncomplicated
CPT/HCPCS: 36415; 74022; 80053; 83690; 85025; 96361; 96374; 96375; 99284; G0480; J1630; J3490; J7030

== ENCOUNTER 2020-11-27 09:16 | Emergency (ER) | payer SELFPAY ==
[~2020-11-27] VITALS: Ht 177.8 cm; Wt 84.0 kg
[~2020-11-27 09:16] MED LIST changes: +PROC10TA57 PO
[2020-11-27] MEDS ORDERED: IV NORMAL SALINE 1000ML BAG 1,000 ML IV ONE (10:00)
[2020-11-27] MEDS ORDERED: ONDANSETRON PF 4 MG/2 ML VIAL. IVP ONE ×2 (10:15→13:30)
[2020-11-27 10:19] LABS: BASO % 1 % (0-3); EOS % 0 % (0-3); HEMATOCRIT 42.3 % (39.0-53.0); HEMOGLOBIN 14.7 g/dL (13.0-17.5); LYMPH # 1.5 x10^3/uL (1.0-4.8); LYMPH % 18 % (24-48); MEAN CORPUSCULAR HEMOGLOBIN 31 pg (25-35); MEAN CORPUSCULAR HGB CONC 35 g/dL (31-37); MEAN CORPUSCULAR VOLUME 88 fL (79-100); MONO # 0.5 x10^3/uL (0.0-1.1); MONO % 7 % (0-9); NEUT # 6.4 x10^3/uL (1.8-7.7); NEUT % 75 % (31-73); PLATELET COUNT 250 x10^3/uL (140-400); RED BLOOD COUNT 4.78 x10^6/uL (4.30-5.70); RED CELL DISTRIBUTION WIDTH 12.9 % (11.5-14.5); WHITE BLOOD COUNT 8.4 x10^3/uL (4.0-11.0)
[2020-11-27 11:14] LABS: CALCIUM 9.3 mg/dL (8.5-10.1); CREATININE 1.2 mg/dL (0.7-1.3); GFR 86.6; POTASSIUM 3.5 mmol/L (3.5-5.1)
[2020-11-27 11:20] LABS: ALBUMIN 4.1 g/dL (3.4-5.0); ALBUMIN/GLOBULIN RATIO 1.2 (1.0-1.7); MAGNESIUM 1.9 mg/dL (1.8-2.4); TOTAL BILIRUBIN 2.2 mg/dL (0.2-1.0); TOTAL PROTEIN 7.5 g/dL (6.4-8.2)
[2020-11-27] MEDS ORDERED: METOCLOPRAMIDE HCL 10 MG/2 ML VIAL. IVP ONE (12:00)
[2020-11-27] MEDS ORDERED: IOHEXOL 300 MG/ML 100ML VIAL. IV ONE (12:45)
[2020-11-27] MEDS ORDERED: CONTRAST GIVEN. MC PRN (12:45)
[2020-11-27 12:51] LABS: BILIRUBIN,URINE SMALL (NEG); CLARITY,URINE CLEAR; NITRITE,URINE NEGATIVE (NEG); PROTEIN,URINE 30 mg/dL (NEG-TRACE); UROBILINOGEN,URINE 0.2 mg/dL (0.2 mg/dL)
[2020-11-27 13:03] LABS: BACTERIA,URINE FEW /HPF (0-FEW); COLOR,URINE YELLOW; RBC,URINE OCC /HPF (0-2)
--- NOTE | 2020-11-27 13:06 | RAD ---
EXAM: CT ABDOMEN/PELVIS WITH CONTRAST. HISTORY: Abdominal pain, nausea, vomiting. TECHNIQUE: Computed tomography of the abdomen and pelvis was performed after the intravenous administ ration of iodinated contrast. One or more of the following individualized dose reduction techniques w ere utilized for this examination: 1. Automated exposure control. 2. Adjustment of the mA and/or kV according to patient size. 3. Use of iterative reconstruction technique. COMPARISON: 10/26/2017. FINDINGS: Lung windows through the visualized portions of the bases reveal no abnormality. Bone windo ws reveal no suspicious lesions. Mild diffuse colonic wall thickening is consistent with colitis. The appendix does not appear primari ly inflamed. There is no clear small bowel obstruction or wall thickening. There are no pathologically enlarged lymph nodes. The liver, gallbladder, pancreas, adrenal glands, s pleen and kidneys are unremarkable. IMPRESSION: 1. Mild diffuse colonic wall thickening. Correlate for colitis. Electronically signed by: Jaxon Soni MD (11/27/2020 1:04 PM) [id number]
--- NOTE | 2020-11-27 13:07 | PHYS DOC ---
Past Medical History Past Medical History: Asthma, Cyclic Vomiting Additional Past Medical Histor: CHRONIC N/V/D,STEPHANIE,ACUTE RENAL FAILURE,RHABDOM YLOSIS Past Surgical History: No Surgical History Smoking Status: Current Every Day Smoker Alcohol Use: None Drug Use: Marijuana General Adult EDM: Chief Complaint: NAUSEA/VOMITING/DIARRHEA HPI: HPI: Patient is a 30 year old male who present to ER for evaluation of nausea vomiting and abdominal pain. Symptoms just started this morning. Patient had been evaluated here multiple times in past for chronic abdominal pain. Patient has cyclic vomiting syndrome, he continues to smoke marijuana. Patient denies any chest pain, no cough, no fever. Patient denies any diarrhea. Patient was not vaccinated for COVID-19. Review of Systems: Review of Systems: Constitutional: Denies fever or chills. [] Eyes: Denies change in visual acuity. [] HENT: Denies nasal congestion or sore throat. [] Respiratory: Denies cough or shortness of breath. [] Cardiovascular: Denies chest pain or edema. [] GI: Positive for abdominal pain with nausea vomiting. : Denies dysuria. [] Musculoskeletal: Denies back pain or joint pain. [] Integument: Denies rash. [] Neurologic: Denies headache, focal weakness or sensory changes. [] Endocrine: Denies polyuria or polydipsia. [] Lymphatic: Denies swollen glands. [] Psychiatric: Denies depression or anxiety. [] Heart Score: C/O Chest Pain: N/A Risk Factors: Risk Factors: DM, Current or recent (<one month) smoker, HTN, HLP, family history of CAD, obesity. Risk Scores: Score 0 - 3: 2.5% MACE over next 6 weeks - Discharge Home Score 4 - 6: 20.3% MACE over next 6 weeks - Admit for Clinical Observation Score 7 - 10: 72.7% MACE over next 6 weeks - Early Invasive Strategies Current Medications: Current Medications Medications (Trade) Dose Ordered Sig/Arleen Start Time Stop Time Status Last Admin Dose Admin Info (CONTRAST GIVEN -- Rx MONITORING) 1 each PRN DAILY PRN 11/27/20 12:45 11/29/20 12:44 Iohexol (Omnipaque 300 Mg/ml) 75 ml 1X ONCE 11/27/20 12:45 11/27/20 12:46 DC 11/27/20 12:48 75 ML Metoclopramide HCl (Reglan Vial) 10 mg 1X ONCE 11/27/20 12:00 11/27/20 12:01 DC 11/27/20 12:04 10 MG Ondansetron HCl (Zofran) 4 mg 1X ONCE 11/27/20 10:15 11/27/20 10:16 DC 11/27/20 10:15 4 MG Sodium Chloride 1,000 ml @ 1,000 mls/hr 1X ONCE 11/27/20 10:00 11/27/20 10:59 DC 11/27/20 10:14 1,000 MLS/HR Allergies: Allergies: Allergies Coded Allergies Type Severity Reaction Last Updated Verified No Known Drug Allergies 11/27/20 No Physical Exam: PE: Constitutional: Well developed, well nourished, mild acute distress, non-toxic appearance. [] HENT: Normocephalic, atraumatic, bilateral external ears normal, oropharynx moist, no oral exudates, nose normal. [] Eyes: PERRLA, EOMI, conjunctiva normal, no discharge. [] Neck: Normal range of motion, no tenderness, supple, no stridor. [] Cardiovascular:Heart rate regular rhythm, no murmur [] Lungs & Thorax: Bilateral breath sounds clear to auscultation [] Abdomen: Bowel sounds normal, soft, tender to palpation in epigastric area, no masses, no pulsatile masses. [] Skin: Warm, dry, no erythema, no rash. [] Back: No tenderness, no CVA tenderness. [] Extremities: No tenderness, no cyanosis, no clubbing, ROM intact, no edema. [] Neurologic: Alert and oriented X 3, normal motor function, normal sensory func tion, no focal deficits noted. [] Psychologic: Affect normal, judgement normal, mood normal. [] Current Patient Data: Labs: Laboratory Tests Test 11/27/20 10:00 11/27/20 10:35 11/27/20 10:40 11/27/20 12:44 White Blood Count 8.4 x10^3/uL (4.0-11.0) Red Blood Count 4.78 x10^6/uL (4.30-5.70) Hemoglobin 14.7 g/dL (13.0-17.5) Hematocrit 42.3 % (39.0-53.0) Mean Corpuscular Volume 88 fL (79-100) Mean Corpuscular Hemoglobin 31 pg (25-35) Mean Corpuscular Hemoglobin Concent 35 g/dL (31-37) Red Cell Distribution Width 12.9 % (11.5-14.5) Platelet Count 250 x10^3/uL (140-400) Neutrophils (%) (Auto) 75 % (31-73) H Lymphocytes (%) (Auto) 18 % (24-48) L Monocytes (%) (Auto) 7 % (0-9) Eosinophils (%) (Auto) 0 % (0-3) Basophils (%) (Auto) 1 % (0-3) Neutrophils # (Auto) 6.4 x10^3/uL (1.8-7.7) Lymphocytes # (Auto) 1.5 x10^3/uL (1.0-4.8) Monocytes # (Auto) 0.5 x10^3/uL (0.0-1.1) Eosinophils # (Auto) 0.0 x10^3/uL (0.0-0.7) Basophils # (Auto) 0.0 x10^3/uL (0.0-0.2) Sodium Level 136 mmol/L (136-145) Potassium Level 3.5 mmol/L (3.5-5.1) Chloride Level 99 mmol/L (98-107) Carbon Dioxide Level 24 mmol/L (21-32) Anion Gap 13 (6-14) Blood Urea Nitrogen 13 mg/dL (8-26) Creatinine 1.2 mg/dL (0.7-1.3) Estimated GFR (Cockcroft-Gault) 86.6 BUN/Creatinine Ratio 11 (6-20) Glucose Level 101 mg/dL (70-99) H Calcium Level 9.3 mg/dL (8.5-10.1) Magnesium Level 1.9 mg/dL (1.8-2.4) Total Bilirubin 2.2 mg/dL (0.2-1.0) H Aspartate Amino Transferase (AST) 25 U/L (15-37) Alanine Aminotransferase (ALT) 46 U/L (16-63) Alkaline Phosphatase 76 U/L (46-116) Total Protein 7.5 g/dL (6.4-8.2) Albumin 4.1 g/dL (3.4-5.0) Albumin/Globulin Ratio 1.2 (1.0-1.7) Lipase 22 U/L (73-393) L SARS-CoV-2 Antigen (Rapid) Negative (NEGATIVE) Urine Collection Type Unknown Urine Color Yellow Urine Clarity Clear Urine pH 6.0 (<5.0-8.0) Urine Specific Latta >=1.030 (1.000-1.030) Urine Protein 30 mg/dL (NEG-TRACE) Urine Glucose (UA) Negative mg/dL (NEG) Urine Ketones (Stick) >=80 mg/dL (NEG) Urine Blood Negative (NEG) Urine Nitrite Negative (NEG) Urine Bilirubin Small (NEG) Urine Urobilinogen Dipstick 0.2 mg/dL (0.2 mg/dL) Urine Leukocyte Esterase Negative (NEG) Urine RBC Occ /HPF (0-2) Urine WBC 1-4 /HPF (0-4) Urine Squamous Epithelial Cells Few /LPF Urine Bacteria Few /HPF (0-FEW) Urine Mucus Marked /LPF Laboratory Tests 11/27/20 10:00 Laboratory Tests 11/27/20 10:35 Vital Signs: Vital Signs Date Time Temp Pulse Resp B/P (MAP) Pulse Ox O2 Delivery O2 Flow Rate FiO2 11/27/20 09:45 97.0 58 20 133/77 (94) 100 Room Air 97.0 EKG: EKG: [] Radiology/Procedures: Radiology/Procedures: [][facility] [address] [place] [address] IMAGING REPORT Signed PATIENT: STEVE GARBER DACCOUNT: [id number] : 1990 LOCATION: ER AGE: 30 SEX: M EXAM STATUS: REG ER ORD. PHYSICIAN: BROOKLYNN INGRAM DO REASON: abdominal pain, nausea, vomiting PROCEDURE: CT ABD PELV W/ IV CONTRST ONLY EXAM: CT ABDOMEN/PELVIS WITH CONTRAST. HISTORY: Abdominal pain, nausea, vomiting. TECHNIQUE: Computed tomography of the abdomen and pelvis was performed after the intravenous administration of iodinated contrast. One or more of the following individualized dose reduction techniques were utilized for this examination: 1. Automated exposure control. 2. Adjustment of the mA and/or kV according to patient size. 3. Use of iterative reconstruction technique. COMPARISON: 10/26/2017. FINDINGS: Lung windows through the visualized portions of the bases reveal no abnormality. Bone windows reveal no suspicious lesions. Mild diffuse colonic wall thickening is consistent with colitis. The appendix does not appear primarily inflamed. There is no clear small bowel obstruction or wall thickening. There are no pathologically enlarged lymph nodes. The liver, gallbladder, pancreas, adrenal glands, spleen and kidneys are unremarkable. IMPRESSION: 1. Mild diffuse colonic wall thickening. Correlate for colitis. Electronically signed by: Jaxon Wallace MD (11/27/2020 1:04 PM) [id number] DICTATED and SIGNED BY: KEVIN WALLACE MD DATE: 11/27/20 [id number] Course & Med Decision Making: Course & Med Decision Making Pertinent Labs and Imaging studies reviewed. (See chart for details) Patient is a 30-year-old male who present to ER due to nausea vomiting abdominal pain. Patient was given IV medication in ER, he felt much better now. Review his medical record showed that patient has history of chronic abdominal pain with nausea vomiting, he has cyclic vomiting syndrome. Dragon Disclaimer: Dragon Disclaimer: This electronic medical record was generated, in whole or in part, using a voice recognition dictation system. Departure Departure Impression: Primary Impression: Cyclical vomiting Disposition: 01 HOME / SELF CARE / HOMELESS Condition: IMPROVED Referrals: NO PCP (PCP) Please follow up with [facility] this week. [address], [address] [place] [address] Phone number: [phone] Patient Instructions: Cyclic Vomiting Syndrome Additional Instructions: Thank you for visiting our Emergency Department. We appreciate you trusting us with your care. If any additional problems come up don't hesitate to return to visit us. Please follow up with your primary care provider so they can plan additional care if needed and know about the problem that you had. If symptoms worsen come back to the Emergency Department. Any concerning symptoms that start such as chest pain, shortness of air, weakness or numbness on one side of the body, running high fevers or any other concerning symptoms return to the ER. Scripts Metoclopramide Hcl (REGLAN) 10 Mg Tablet 1 TAB PO QID PRN for NAUSEA for 10 Days, #40 TAB 0 Refills before food and bedtime Prov: BROOKLYNN INGRAM DO 11/27/20 BROOKLYNN INGRAM DO Nov 27, 2020 13:07
[2020-11-27] MEDS ORDERED: diphenhydrAMINE 50 MG/ML VIAL IVP ONE (13:45)
[2020-11-27] MEDS ORDERED: METO10TA81 PO (14:29)
[2020-11-27 14:38] VITALS: BP 133/53
== END 2020-11-27 14:45 | disposition home or self-care (01) ==
LOC: ER 09:16
DX: R11.15 Cyclical vomiting syndrome unrelated to migraine (principal); Z20.822 Contact with and (suspected) exposure to COVID-19; R10.13 Epigastric pain; J45.909 Unspecified asthma, uncomplicated; F17.200 Nicotine dependence, unspecified, uncomplicated
CPT/HCPCS: 36415; 74177; 80053; 81001; 83690; 83735; 85025; 87426; 96361; 96374; 96375; 96376; 99285; J1200; J2405; J2765; J7030; Q9967

== ENCOUNTER 2021-01-25 23:44 | Emergency (ER) | payer SELFPAY ==
[~2021-01-25] VITALS: Ht 177.8 cm; Wt 86.4 kg
[~2021-01-25 23:44] MED LIST changes: +METO10TA81 PO
[2021-01-26 01:50] VITALS: BP 169/87
[2021-01-26] MEDS ORDERED: LIDOCAINE 1% Multi-Dose 20 ML VIAL. ONE (02:55)
[2021-01-26] MEDS ORDERED: IBUPROFEN 400 MG TABLET. PO ONE (03:00)
--- NOTE | 2021-01-26 03:22 | PHYS DOC ---
Past Medical History Past Medical History: Asthma, Cyclic Vomiting Additional Past Medical Histor: CHRONIC N/V/D,STEPHANIE,ACUTE RENAL FAILURE,RHABDOMYLOSIS Past Surgical History: No Surgical History Smoking Status: Never Smoker Alcohol Use: None Drug Use: Marijuana General Adult EDM: Chief Complaint: LACERATION/AVULSION HPI: HPI: Patient is a 30 year old male who presents with a right thumb pad laceration. He was trying to carve a pumpkin and lacerated himself with a knife. He reports that his tetanus is up-to-date. He denies numbness or weakness. No active bleeding. He denies any joint pain. No difficulty with range of motion. No other complaints. Review of Systems: Review of Systems: Constitutional: Denies fever or chills. []] Respiratory: Denies cough or shortness of breath. [] Cardiovascular: Denies chest pain or edema. [] Musculoskeletal: Denies back pain or joint pain. Nuys joint swelling or redness. Integument: Denies rash. Right thumb laceration. Neurologic: Denies headache, focal weakness or sensory changes. [] Psychiatric: Denies depression or anxiety. [] Heart Score: C/O Chest Pain: No Risk Factors: Risk Factors: DM, Current or recent (<one month) smoker, HTN, HLP, family history of CAD, obesity. Risk Scores: Score 0 - 3: 2.5% MACE over next 6 weeks - Discharge Home Score 4 - 6: 20.3% MACE over next 6 weeks - Admit for Clinical Observation Score 7 - 10: 72.7% MACE over next 6 weeks - Early Invasive Strategies Current Medications: Current Medications Medications (Trade) Dose Ordered Sig/Arleen Start Time Stop Time Status Last Admin Dose Admin Ibuprofen (Motrin) 800 mg 1X ONCE 01/26/21 03:00 01/26/21 03:01 DC Lidocaine HCl (Lidocaine 1% 20ml Vial) 20 ml STK-MED ONCE 01/26/21 02:55 01/26/21 02:55 DC Allergies: Allergies: Allergies Coded Allergies Type Severity Reaction Last Updated Verified No Known Drug Allergies 11/27/20 No Physical Exam: PE: Constitutional: Well developed, well nourished, no acute distress, non-toxic appearance. [] HENT: Normocephalic, atraumatic Eyes: Sclera clear and nonicteric Cardiovascular: No peripheral edema, cap refill is brisk, +2 radial pulse in the right upper extremity. Lungs & Thorax: Respirations are nonlabored. Skin: There is a linear, subcutaneous laceration of the right thumb pad. No active bleeding. No visible foreign body noted. Serration overlying joint space. No tendon visualized. Extremities: Right thumb laceration of the soft tissue of the pad of the thumb, as noted above. +2 radial pulse. Cap refill is brisk. He has full painless range of motion of the IP joint, MCP joint of the right thumb. Sensation is grossly intact. No palpable step-off or crepitus. Neurologic: Alert and oriented X 3, normal motor function, normal sensory function, no focal deficits noted. [] Psychologic: Affect normal, judgement normal, mood normal. [] Current Patient Data: Vital Signs: Vital Signs Date Time Temp Pulse Resp B/P (MAP) Pulse Ox O2 Delivery O2 Flow Rate FiO2 01/26/21 01:50 98.3 110 16 169/87 (114) 99 Room Air 98.3 EKG: EKG: [] Radiology/Procedures: Radiology/Procedures: [] Course & Med Decision Making: Course & Med Decision Making Patient is given ibuprofen for pain prior to laceration repair. He tolerated repair well. I discussed home care and wound care instructions with him. Strict return precautions are given. He verbalized understanding. Indication: Right thumb pad laceration. Procedure: The patient was placed in the appropriate position and anesthesia around the right thumb laceration. Local anesthesia using 1% lidocaine without epinephrine was used. Adequate anesthesia was achieved.. The area was then cleaned with Betadine and copiously irrigated with normal saline. The laceration was closed using 4-0 Ethilon sutures, simple interrupted. Total of 6 sutures were placed. Adequate wound closure was achieved. The wound is hemostatic. Nursing staff placed a dressing. Total repaired wound length: 2-1/2 cm The patient tolerated the procedure well Complications: None Dragon Disclaimer: Dragon Disclaimer: This electronic medical record was generated, in whole or in part, using a voice recognition dictation system. Departure Departure Impression: Primary Impression: Laceration of right thumb Qualified Codes: S61.011A - Laceration without foreign body of right thumb without damage to nail, initial encounter Disposition: HOME / SELF CARE / HOMELESS Condition: GOOD Referrals: NO PCP (PCP) Patient Instructions: Laceration Care, Adult Additional Instructions: Keep the wound clean and dry. Return immediately for fever of 100.4 or higher, with redness, swelling, severe pain, yellow-green wound drainage, if you were newly or acutely injured or for any other concerns. Avoid submersion or soaking of your hand or thumb, as this will increase risk for infection and impair healing. You may return to the emergency department in 7 days for suture removal. XOCHILT BRANDON DO Jan 26, 2021 03:22
== END 2021-01-26 03:35 | disposition home or self-care (01) ==
LOC: ER 23:44
DX: S61.011A Laceration without foreign body of right thumb without damage to nail, initial encounter (principal); J45.909 Unspecified asthma, uncomplicated; W26.0XXA Contact with knife, initial encounter; Y93.89 Activity, other specified; Y92.89 Other specified places as the place of occurrence of the external cause; Y99.8 Other external cause status
CPT/HCPCS: 12001; 99282

== ENCOUNTER 2021-02-11 03:36 | Emergency (ER) | payer SELFPAY ==
[~2021-02-11] VITALS: Ht 177.8 cm; Wt 88.0 kg
[2021-02-11] MEDS ORDERED: ONDANSETRON ODT 4 MG TAB.RAPDIS. PO ONE (05:30)
[2021-02-11 05:34] VITALS: BP 134/64
[2021-02-11] MEDS ORDERED: ONDANSETRON PF 4 MG/2 ML VIAL. IVP ONE (05:45)
--- NOTE | 2021-02-11 05:46 | PHYS DOC ---
Past Medical History Past Medical History: Asthma, Cyclic Vomiting Additional Past Medical Histor: CHRONIC N/V/D,STEPHANIE,ACUTE RENAL FAILURE,RHABDOMYLOSIS (NONI CRUZ DO) Past Surgical History: No Surgical History (NONI CRUZ DO) Smoking Status: Current Every Day Smoker Alcohol Use: None Drug Use: Marijuana (NONI CRUZ DO) General Adult EDM: Chief Complaint: NAUSEA/VOMITING/DIARRHEA HPI: HPI: 30-year-old male past medical history of asthma, cyclic vomiting, marijuana use, tobacco use with history of acute renal failure and rhabdomyolysis, presents the ED with complaints of multiple episodes of nausea, nonbloody nonbilious vo miting, loose watery stools, body aches and diffuse abdominal pain that started last night. Does report recent marijuana use. States he had the symptoms before and had been admitted for them. No relief with a prescribed medicine that starts with the letter "m." Reports has been vaccinated for Covid. Denies any heavy alcohol use/binge drinking or history of pancreatitis. Has no past surgical history. (NONI CRUZ DO) Review of Systems: Review of Systems: Constitutional: Denies fever or chills or lack of taste or smell Eyes: Denies change in visual acuity. [] HENT: Denies nasal congestion or sore throat. [] Respiratory: Denies cough or shortness of breath. [] Cardiovascular: Denies chest pain or edema. [] GI: Denies constipation or melena : Denies dysuria or hematuria Musculoskeletal: Denies back pain or joint pain. [] Integument: Denies rash or diaphoresis Neurologic: Denies headache, focal weakness or sensory changes. [] Endocrine: Denies polyuria or polydipsia. [] Lymphatic: Denies swollen glands. [] Psychiatric: Denies depression or anxiety. [] (NONI CRUZ DO) Heart Score: C/O Chest Pain: No Risk Factors: Risk Factors: DM, Current or recent (<one month) smoker, HTN, HLP, family history of CAD, obesity. Risk Scores: Score 0 - 3: 2.5% MACE over next 6 weeks - Discharge Home Score 4 - 6: 20.3% MACE over next 6 weeks - Admit for Clinical Observation Score 7 - 10: 72.7% MACE over next 6 weeks - Early Invasive Strategies (VOHSNONI DO) Current Medications: Current Medications Medications (Trade) Dose Ordered Sig/Arleen Start Time Stop Time Status Last Admin Dose Admin Ondansetron HCl (Zofran Odt) 4 mg 1X ONCE 02/11/21 05:30 02/11/21 05:31 DC 02/11/21 05:33 4 MG [facility] Allergies: Allergies: Allergies Coded Allergies Type Severity Reaction Last Updated Verified No Known Drug Allergies 11/27/20 No ([facility]) Physical Exam: PE: Constitutional: Active yellow/clear emesis in ED, afebrile, no tachycardia, with home comforter, no thc smell HENT: Normocephalic, atraumatic, dry mucous membranes Eyes: EOMI, conjunctiva normal, no discharge. Neck: Normal range of motion, supple, Cardiovascular: S1/2 present, regular rhythm Lungs & Thorax: Speaking in full sentences, bilateral equal chest rise, no tachypnea or increased work of breathing Abdomen: soft, nonfocal diffuse tenderness Skin: Warm, dry, no erythema, no rash. [] Extremities: No tenderness, no cyanosis, no lower extremity edema Neurologic: Alert and oriented X 3, normal motor function, normal sensory function, no focal deficits noted. [] Psychologic: Affect normal, judgement normal, mood normal. [] ([facility]) Current Patient Data: Vital Signs: Vital Signs Date Time Temp Pulse Resp B/P (MAP) Pulse Ox O2 Delivery O2 Flow Rate FiO2 02/11/21 05:15 97.4 67 20 146/97 (113) 100 Room Air 97.4 ([facility]) EKG: EKG: [] ([facility]) Radiology/Procedures: Radiology/Procedures: [] ([facility]) Course & Med Decision Making: Course & Med Decision Making Pertinent Labs and Imaging studies reviewed. (See chart for details) Concern for nausea, vomiting, diarrhea and abdominal pain in the setting of body aches. EMR was reviewed and patient had a prior hospital admission for acute renal failure with rhabdomyolysis and nausea and vomiting, suspected marijuana but less likely givenit was patient's first incidence (pt also had elevated liver enzymes). Patient pending IV fluids, medications and labs. Due to shift change patient was signed out to oncoming physician for further medical evaluation and disposition. (NONI CRUZ DO) Course & Med Decision Making This patient was initially seen by Dr. Cruz. Please see her note for further details of H&P. I assumed care at 0600. As of 0700, the patient is resting comfortable. Nausea and vomiting is resolved. He is able to drink water without any further vomiting. He denies any active pain. He reports feeling much better and wishes to go home. He reports that Reglan and Zofran did not help. He is willing to try Phenergan at home. I did discuss cessation of marijuana use. He acknowledges that he will try to do this. No indication for emergent imaging or further invasive exams. Home care instructions, including bland diet instructions are provided to the patient. I recommend he contact her primary care physician for follow-up. Strict return precautions are given. He verbalizes understanding. (XOCHILT BRANDON DO) Dragon Disclaimer: Dragon Disclaimer: This electronic medical record was generated, in whole or in part, using a voice recognition dictation system. (NONI CRUZ DO) Departure Departure Impression: Primary Impression: Nausea and vomiting Qualified Codes: R11.2 - Nausea with vomiting, unspecified Disposition: HOME / SELF CARE / HOMELESS Condition: STABLE Referrals: NO PCP (PCP) Patient Instructions: Gastritis, Adult, Nausea and Vomiting Additional Instructions: Use the medications as directed/as needed. Eat a bland diet, drink plenty of clear fluids. Avoid alcohol, avoid use of marijuana, avoid salty or spicy foods. Do not take the Phenergan with Reglan, only one of the other but not both together. Return immediately for any severe abdominal pain, uncontrolled vomiting, vomiting blood, fever of 100.4 or higher, severe chest pain, shortness of breath or any other concerns. Please follow-up with your primary care physician. Scripts Promethazine Hcl (PROMETHAZINE HCL) 25 Mg Tablet 1 TAB PO PRN Q6HRS for vomiting, #20 TAB Prov: XOCHILT BRANDON DO 02/11/21 NONI CRUZ DO Feb 11, 2021 05:46 XOCHILT BRANDON DO Feb 11, 2021 07:19
[2021-02-11 05:51] LABS: BASO % 1 % (0-3); EOS % 0 % (0-3); HEMATOCRIT 40.1 % (39.0-53.0); HEMOGLOBIN 13.7 g/dL (13.0-17.5); LYMPH % 12 % (24-48); MEAN CORPUSCULAR HEMOGLOBIN 30 pg (25-35); MEAN CORPUSCULAR HGB CONC 34 g/dL (31-37); MEAN CORPUSCULAR VOLUME 89 fL (79-100); MONO # 0.4 x10^3/uL (0.0-1.1); MONO % 5 % (0-9); NEUT # 6.6 x10^3/uL (1.8-7.7); NEUT % 82 % (31-73); PLATELET COUNT 229 x10^3/uL (140-400); RED BLOOD COUNT 4.53 x10^6/uL (4.30-5.70); RED CELL DISTRIBUTION WIDTH 13.1 % (11.5-14.5)
[2021-02-11 05:57] LABS: CALCIUM 9.2 mg/dL (8.5-10.1); CREATININE 1.2 mg/dL (0.7-1.3); GFR 86.6; POTASSIUM 3.9 mmol/L (3.5-5.1)
[2021-02-11] MEDS ORDERED: FAMOTIDINE 20 MG/2 ML VIAL IVP ONE (06:00)
[2021-02-11] MEDS ORDERED: IV NORMAL SALINE 1000ML BAG 1,000 ML IV ONE (06:00)
[2021-02-11 06:03] LABS: ALBUMIN 4.3 g/dL (3.4-5.0); ALBUMIN/GLOBULIN RATIO 1.2 (1.0-1.7); TOTAL BILIRUBIN 2.4 mg/dL (0.2-1.0); TOTAL PROTEIN 7.8 g/dL (6.4-8.2)
[2021-02-11] MEDS ORDERED: METOCLOPRAMIDE HCL 10 MG/2 ML VIAL. ONE (06:26)
[2021-02-11] MEDS ORDERED: METOCLOPRAMIDE HCL 10 MG/2 ML VIAL. IVP ONE (07:00)
[2021-02-11] MEDS ORDERED: PROM25TA10 PO (07:19)
== END 2021-02-11 07:39 | disposition home or self-care (01) ==
LOC: ER 03:36
DX: R11.2 Nausea with vomiting, unspecified (principal); R10.84 Generalized abdominal pain; M79.10 Myalgia, unspecified site; R19.7 Diarrhea, unspecified; Z72.0 Tobacco use; J45.909 Unspecified asthma, uncomplicated
CPT/HCPCS: 36415; 80053; 82550; 83690; 85025; 96361; 96374; 96375; 99284; J2765; J3490; J7030

== ENCOUNTER 2021-02-15 17:40 | Emergency (ER) | payer SELFPAY ==
[~2021-02-15 17:40] MED LIST changes: +PROM25TA10 PO
== END 2021-02-15 18:37 | disposition left against medical advice (07) ==
LOC: ER 17:40
DX: R10.9 Unspecified abdominal pain (principal); R11.10 Vomiting, unspecified; Z53.21 Procedure and treatment not carried out due to patient leaving prior to being seen by health care provider

== ENCOUNTER 2021-02-26 10:13 | Emergency (ER) | payer SELFPAY ==
[~2021-02-26] VITALS: Ht 177.8 cm; Wt 86.9 kg
[2021-02-26 10:28] VITALS: BP 134/64
--- NOTE | 2021-02-26 10:36 | PHYS DOC ---
Past Medical History Past Medical History: Asthma, Cyclic Vomiting Additional Past Medical Histor: CHRONIC N/V/D,STEPHANIE,ACUTE RENAL FAILURE,RHABDOMYLOSIS Past Surgical History: No Surgical History Smoking Status: Current Every Day Smoker Alcohol Use: None Drug Use: Marijuana General Adult EDM: Chief Complaint: DENTAL PROBLEM HPI: HPI: Patient is a 30 year old male who is here with bilateral upper and lower dental pain, worse on the right than the left. He reports symptoms for the last several days. He took ibuprofen once yesterday, no meds taken today. He denies facial swelling, fevers chills, sore throat, difficulty swallowing, dyspnea, chest pain, rash. He has a history of cavities with previous feelings. He has a dentist but he has not called to make an appointment as of yet. Review of Systems: Review of Systems: Constitutional: Denies fever or chills. [] HENT: Denies nasal congestion or sore throat. Reports bilateral upper and lower dental pain, worse on the right than the left. Respiratory: Denies cough or shortness of breath. [] Cardiovascular: Denies chest pain or edema. [] GI: Denies nausea or vomiting. Neurologic: Denies headache, dizziness or weakness. Psychiatric: Denies depression or anxiety. [] Heart Score: C/O Chest Pain: No Risk Factors: Risk Factors: DM, Current or recent (<one month) smoker, HTN, HLP, family history of CAD, obesity. Risk Scores: Score 0 - 3: 2.5% MACE over next 6 weeks - Discharge Home Score 4 - 6: 20.3% MACE over next 6 weeks - Admit for Clinical Observation Score 7 - 10: 72.7% MACE over next 6 weeks - Early Invasive Strategies Allergies: Allergies: Allergies Coded Allergies Type Severity Reaction Last Updated Verified No Known Drug Allergies 11/27/20 No Physical Exam: PE: Upper Constitutional: Well developed, well nourished, no acute distress, non-toxic appearance. [] HENT: Normocephalic, atraumatic, oropharynx is patent and clear, uvula midline, mucous membranes are moist. Lower caries are noted in the molars and premolars, no obvious acute dental injury, no gingival erythema, no fluctuance, no percussion tenderness, no drainage. No drooling or trismus. External ears are normal bilaterally. Eyes: Sclera are clear and anicteric. Neck: Nontender, trachea midline. Cardiovascular: Well-perfused appearing, no peripheral edema. Lungs & Thorax: Respirations are nonlabored. Extremities: No limb deformity. No peripheral edema. Neurologic: Awake, alert, fully oriented, ambulatory with a steady gait, speech is clear and fluent, no facial asymmetry Psychologic: Affect normal, judgement normal, mood normal. [] Current Patient Data: Vital Signs: Vital Signs Date Time Temp Pulse Resp B/P (MAP) Pulse Ox O2 Delivery O2 Flow Rate FiO2 02/26/21 10:28 97.9 84 18 134/64 (87) 97 Room Air 97.9 EKG: EKG: [] Radiology/Procedures: Radiology/Procedures: [] Course & Med Decision Making: Course & Med Decision Making IM Toradol and p.o. penicillin are given here. I discussed the findings, differential diagnosis and plan of care with him. No indication for emergent imaging, labs or invasive exams. I told him to contact his dentist for follow- up. Home care instructions were provided, including soft bland diet. Return precautions are given. Dragon Disclaimer: Dragon Disclaimer: This electronic medical record was generated, in whole or in part, using a voice recognition dictation system. Departure Departure Impression: Primary Impression: Pain, dental Disposition: HOME / SELF CARE / HOMELESS Condition: STABLE Referrals: NO PCP (PCP) Patient Instructions: Dental Caries Additional Instructions: Take the medication as directed. Please contact your dentist for follow-up, as this will be the more definitive treatment for your condition. Return for severe facial swelling, difficulty swallowing, difficulty breathing or any other concerns. Eat a soft bland diet, avoid hard foods such as chips or popcorn. Scripts Tramadol Hcl (ULTRAM) 50 Mg Tablet 1 TAB PO PRN Q6HRS PRN for pain MDD 4 Tablet(s) for 7 Days, #12 TAB 0 Refills Prov: XOCHILT BRANDON DO 02/26/21 Penicillin V Potassium (PENICILLIN V POTASSIUM) 500 Mg Tablet 1 TAB PO QID for 7 Days, #28 TAB Prov: XOCHILT BRANDON DO 02/26/21 ALEKSANDRXOCHILT Chambers DO Feb 26, 2021 10:36
[2021-02-26] MEDS ORDERED: PENICILLIN V K 250 MG TABLET. PO ONE (10:45)
[2021-02-26] MEDS ORDERED: TRAM-48 PO (10:48)
[2021-02-26] MEDS ORDERED: PENI500T PO (10:48)
[2021-02-26] MEDS ORDERED: KETOROLAC 30 MG/ML VIAL. IM ONE (11:00)
== END 2021-02-26 11:22 | disposition home or self-care (01) ==
LOC: ER 10:13
DX: K08.89 Other specified disorders of teeth and supporting structures (principal); J45.909 Unspecified asthma, uncomplicated; F17.200 Nicotine dependence, unspecified, uncomplicated
CPT/HCPCS: 96372; 99283; J1885